=== PATIENT | male | born 1985 | race Caucasian/White ===

== ENCOUNTER 2017-01-04 15:36 | Emergency (ER) | payer OTHER ==
[2017-01-04 15:48] VITALS: O2SAT 99
[2017-01-04] MEDS ORDERED: NORCO 5/325 MG PO ONE (16:11)
[2017-01-04] MEDS ORDERED: TORAdol 30 mg Injection IM ONE (16:11)
[2017-01-04] MEDS ORDERED: NORCO 5/325 MG ONE (16:17)
[2017-01-04] MEDS ORDERED: TORAdol 30 mg Injection ONE (16:17)
--- NOTE | 2017-01-04 16:17 | ERPHSYRPT ---
- History of Present Illness Time Seen by Provider: 01/04/17 16:02 Source: patient Patient Subjective Stated Complaint: MOUTH PAIN Triage Nursing Assessment: ON 12/31--HAD 7 TEETH (3 LT UPPER, 2 RT UPPER, 2 RT LOWER). STATES SWELLING HAS NEVER WENT DOWN SINCE SURGERY ON LT SIDE. PAIN AND LOCALIZED SWELLING TO LT SIDE OF FACE. DENIES DRAINAGE FROM ANY DENTAL SOCKETS. RAN OUT OF VICODEN YESTERDAY Physician History: CC: face pain HX: 31 y/o healthy male patient had [address] Cross in [facility] Friday (4 days). He has Rx for PCN but forgot to take since yesterday. He ran out of vicodin. He has continued left facial pain. No fever or chills. No diff breathing. No redness. He was working at [employer] a lot and it hurts to lifts cans. He has tried ice and warm packs. Allergies/Adverse Reactions: No Known Drug Allergies Allergy (Unverified 01/04/17 15:48) Home Medications: No Home Meds 1 ea UD 01/04/17 [History] Hx Tetanus, Diphtheria Vaccination/Date Given: Yes Hx Influenza Vaccination/Date Given: No Hx Pneumococcal Vaccination/Date Given: No Immunizations Up to Date: Yes - Review of Systems Constitutional: No Fever, No Chills Eyes: No Symptoms Ears, Nose, & Throat: Mouth Pain, Mouth Swelling (left) Respiratory: No Dyspnea Abdominal/Gastrointestinal: No Nausea, No Vomiting Skin: No Rash Neurological: No Headache - Past Medical History Pertinent Past Medical History: Yes Neurological History: No Pertinent History ENT History: Other (dental issues and abcesses) Cardiac History: No Pertinent History Respiratory History: No Pertinent History Endocrine Medical History: No Pertinent History Musculoskeletal History: Arthritis GI Medical History: No Pertinent History History: No Pertinent History Psycho-Social History: No Pertinent History Male Reproductive Disorders: No Pertinent History - Past Surgical History Past Surgical History: Yes Other Surgical History: ORAL - Social History Smoking Status: Current every day smoker How long have you smoked: 15 YEARS Exposure to second hand smoke: Yes Alcohol Use: Socially Drug Use: none Patient Lives Alone: No Significant Family History: no pertinent family hx - Nursing Vital Signs Nursing Vital Signs: Initial Vital Signs Temperature 98.2 F Temperature Source Oral Pulse Rate 94 Respiratory Rate 18 Blood Pressure [Right Arm] 143/83 Pain Intensity 9 - Physical Exam General Appearance: alert Eye Exam: PERRL/EOMI, eyes nml inspection Ears, Nose, Throat Exam: moist mucous membranes, other (left facial swelling. No erythema. Gums look well with sutures in place. Various dental caries.) Neck Exam: normal inspection, non-tender, supple Respiratory Exam: normal breath sounds, lungs clear Cardiovascular Exam: regular rate/rhythm Neurologic Exam: alert, oriented x 3, cooperative Skin Exam: warm, dry, No rash SpO2: 99 Oxygen Delivery: Room Air - Course Nursing assessment & vital signs reviewed: Yes - Progress Progress Note: 01/04/17 16:15 Advised pt needs dental follow up. He has not taken pcn but has Rx so will restart. Vicodin and toradol given here. Advised continue motrin, ice packs, pcn , elevate head. Counseled pt/family regarding: diagnosis, need for follow-up - Departure Time of Disposition: 16:16 Departure Disposition: Home Clinical Impression: Mouth pain, post dental extractions Condition: Stable Critical Care Time: No Referrals: MISTY AMARO [Primary Care Provider] - Instructions: Tooth Decay, Dental Pain Additional Instructions: Rx ibuprofen 600mg every 6 hours. Ice packs off and on. Continue ibuprofen 600mg every [address] Cross dentist Friday. Prescriptions: Ibuprofen 600 mg PO Q6H PRN PRN #24 tablet PRN Reason: Pain
[2017-01-04 16:41] VITALS: BP 121/64; PULSE 60
== END 2017-01-04 16:42 | disposition home or self-care (01) ==
LOC: ED 15:36
DX: Z98.818 Other dental procedure status (principal); K13.79 Other lesions of oral mucosa
CPT/HCPCS: 96372; 99284; J1885

== ENCOUNTER 2017-10-18 08:19 | Emergency (ER) | payer MEDICAID, OTHER ==
--- NOTE | 2017-10-18 08:54 | ERPHSYRPT ---
- History of Present Illness Time Seen by Provider: 10/18/17 08:35 Source: patient, family Exam Limitations: no limitations Patient Subjective Stated Complaint: states right hand was numb upon waking up on 10/17/17. Numbness has not resolved and no known injuries Triage Nursing Assessment: numbness per client in right hand and extending up the anterior portion of lower arm. States sensation intact to bottom aspect of forearm and upper arm Physician History: The patient is a 32-year-old right-handed male with his complaining of weakness in his right forearm and wrist since waking up yesterday morning. He denies pain. He says his right forearm feels somewhat tingly and numb but he can still feel things on his skin. He is able to make a fist but cannot open his thumb or fingers up all the way. He can pull his wrist down but cannot pull it back up. He denies any recent trauma. However, he states about 2-3 months ago while he was lifting a 4 pound weight out away from his body, he felt a sudden pop in his neck. He had severe pain for about 2-3 more weeks in his neck. Since that time he has had no trouble until yesterday morning. His past medical history is negative. He takes no medicines. He smokes tobacco dailly. Timing/Duration: yesterday Severity: moderate Character of Deficits: new weakness, RUE Deficits: weak Baseline/Normal Cognition: alert oriented x 3 Current Cognition: alert oriented x 3 Baseline Gait: walks w/o assistance Associated Symptoms: weakness Allergies/Adverse Reactions: No Known Drug Allergies Allergy (Unverified 01/04/17 15:48) Home Medications: No Home Meds [No Home Meds] 1 [facility] UD 01/04/17 [History] Hx Tetanus, Diphtheria Vaccination/Date Given: No Hx Influenza Vaccination/Date Given: Yes Hx Pneumococcal Vaccination/Date Given: No Immunizations Up to Date: Yes - Review of Systems Constitutional: No Fever, No Chills Eyes: No Symptoms Ears, Nose, & Throat: No Symptoms Respiratory: No Cough, No Dyspnea Cardiac: No Chest Pain, No Edema, No Syncope Abdominal/Gastrointestinal: No Abdominal Pain, No Nausea, No Vomiting, No Diarrhea Genitourinary Symptoms: No Dysuria Musculoskeletal: No Back Pain, No Neck Pain Skin: No Rash Neurological: Focal Weakness (right arm) Psychological: No Symptoms Endocrine: No Symptoms Hematologic/Lymphatic: No Symptoms Immunological/Allergic: No Symptoms All Other Systems: Reviewed and Negative - Past Medical History Pertinent Past Medical History: Yes Neurological History: No Pertinent History ENT History: Other Cardiac History: No Pertinent History Respiratory History: No Pertinent History Endocrine Medical History: No Pertinent History Musculoskeletal History: Arthritis GI Medical History: No Pertinent History History: No Pertinent History Psycho-Social History: No Pertinent History Male Reproductive Disorders: No Pertinent History - Past Surgical History Past Surgical History: Yes Other Surgical History: ORAL - Social History Smoking Status: Current every day smoker How long have you smoked: 15 YEARS Exposure to second hand smoke: Yes Alcohol Use: Socially Drug Use: none Patient Lives Alone: No Significant Family History: no pertinent family hx - Nursing Vital Signs Nursing Vital Signs: Initial Vital Signs Temperature 97.9 F 10/18/17 08:27 Pulse Rate 64 10/18/17 08:27 Respiratory Rate 18 10/18/17 08:27 Blood Pressure 154/79 10/18/17 08:27 O2 Sat by Pulse Oximetry 97 10/18/17 08:27 Pain Scale Pain Intensity 0 - [place] Coma Scale Best Eye Response ([place]): (4) open spontaneously Best Verbal Response (Devan): (5) oriented Best Motor Response (Devan): (6) obeys commands [place] Total: 15 - Physical Exam General Appearance: no apparent distress, alert Eye Exam: bilateral eye: PERRL, EOMI Ears, Nose, Throat Exam: normal ENT inspection, moist mucous membranes Neck Exam: normal inspection, non-tender, supple Respiratory: normal breath sounds, lungs clear, airway intact, No respiratory distress Cardiovascular: regular rate/rhythm, No edema Gastrointestinal: soft, No tenderness, No distention Rectal Exam: not done Back Exam: normal inspection Extremity Exam: paralysis (pt unable to extend right wrist or right fingers and thumb), limited range of motion, No parasthesia Mental Status: alert, oriented x 3 molder hand Exam: tongue midline Coordination/Gait: normal finger to nose, normal gait Motor/Sensory: no sensory deficit, weak motor strength RUE, No sensory deficit Skin Exam: normal color, warm, dry, No rash SpO2 Interpretation: normal SpO2: 97 Oxygen Delivery: Room Air - Course EKG Interpreted by Me: RATE, Sinus Rhythm, NORMAL AXIS, NORMAL INTERVALS, NORMAL QRS, NORMAL ST-T - CT Exams Head CT Interpretation: Negative, Tele-radiologist Report (Per Dr Raymundo) Cervical Spine CT Interpretation: Negative, Tele-radiologist Report (Per Dr Raymundo) Ordered Tests: Active Orders 24 hr Category Date Time Status EKG-ER Only STAT Care 10/18/17 08:58 Active IV Insertion STAT Care 10/18/17 08:55 Active CERVICAL SPINE WO CONTRAST [CT] Stat Exams 10/18/17 08:57 Taken HEAD WITHOUT CONTRAST [CT] Stat Exams 10/18/17 08:57 Taken CBC W DIFF Stat Lab 10/18/17 09:00 Completed CMP Stat Lab 10/18/17 09:00 Completed PROTIME WITH INR Stat Lab 10/18/17 09:00 Completed PTT Stat Lab 10/18/17 09:00 Completed UA W/RFX UR CULTURE Stat Lab 10/18/17 09:54 Completed Urine Triage Profile Stat Lab 10/18/17 09:54 Completed Medication Summary Discontinued Medications Generic Name Dose Route Start Last Admin Trade Name Freq PRN Reason Stop Dose Admin Aspirin 81 mg 10/18/17 08:57 10/18/17 09:08 Baby Aspirin 81 Mg Chew PO 10/18/17 08:58 81 mg STAT ONE Administration Lab/Rad Data: Laboratory Result Diagrams 10/18/17 09:00 10/18/17 09:00 Laboratory Results 10/18/17 10/18/17 10/18/17 Range/Units 09:54 09:54 09:00 WBC (4.0-10.5) K/mm3 RBC (4.1-5.6) M/mm3 Hgb (12.5-18.0) gm/dl Hct (42-50) % MCV (78-100) fl MCH (26-32) pg MCHC (32-36) g/dl RDW (11.5-14.0) % Plt Count (150-450) K/mm3 MPV (6-9.5) fl Gran % (36.0-66.0) % Lymphocytes % (24.0-44.0) % Monocytes % (0.0-12.0) % Eosinophils % (0.00-5.0) % Basophils % (0.0-0.4) % Basophils # (0-0.4) INR 0.93 (0.8-3.0) APTT 34.6 (24.1-36.1) SECONDS Sodium (136-145) mEq/L Potassium (3.5-5.1) mEq/L Chloride (98-107) mEq/L Carbon Dioxide (21-32) mEq/L Anion Gap (5-15) MEQ/L BUN (9-20) mg/dL Creatinine (0.55-1.30) mg/dl Estimated GFR ML/MIN Glucose (70-110) MG/DL Calcium (8.5-10.1) mg/dL Total Bilirubin (0.2-1.0) mg/dL AST (15-37) U/L ALT (12-78) U/L Alkaline Phosphatase (46-116) U/L Serum Total Protein (6.4-8.2) gm/dL Albumin (3.4-5.0) g/dL Ur Collection Type VOID Urine Color YELLOW (YELLOW) Urine Appearance CLEAR (CLEAR) Urine pH 6.0 (5-6) Ur Specific [place] 1.015 (1.005-1.025) Urine Protein NEGATIVE (Negative) Urine Ketones NEGATIVE (NEGATIVE) Urine Blood NEGATIVE (0-5) Zeus/ul Urine Nitrite NEGATIVE (NEGATIVE) Urine Bilirubin NEGATIVE (NEGATIVE) Urine Urobilinogen NORMAL (0-1) mg/dL Ur Leukocyte Esterase NEGATIVE (NEGATIVE) Urine Culture Reflexed NO (NO) Urine Glucose NEGATIVE (NEGATIVE) mg/dL Urine Opiates Level NEG. (NEGATIVE) Ur Methadone NEG. (NEGATIVE) Urine Barbiturates NEG. (NEGATIVE) Ur Phencyclidine (PCP) NEG. (NEGATIVE) Urine Amphetamine NEG. (NEGATIVE) U Benzodiazepine Level NEG. (NEGATIVE) Urine Cocaine NEG. (NEGATIVE) Urine Marijuana (THC) POS. (NEGATIVE) Specimen Received 10/18/2017 0950 10/18/17 10/18/17 Range/Units 09:00 09:00 WBC 8.1 (4.0-10.5) K/mm3 RBC 4.88 (4.1-5.6) M/mm3 Hgb 15.7 (12.5-18.0) gm/dl Hct 46.1 (42-50) % MCV 94.5 (78-100) fl MCH 32.2 H (26-32) pg MCHC 34.1 (32-36) g/dl RDW 12.7 (11.5-14.0) % Plt Count 178 (150-450) K/mm3 MPV 11.5 H (6-9.5) fl Gran % 54.4 (36.0-66.0) % Lymphocytes % 29.2 (24.0-44.0) % Monocytes % 8.5 (0.0-12.0) % Eosinophils % 7.5 H (0.00-5.0) % Basophils % 0.4 (0.0-0.4) % Basophils # 0.03 (0-0.4) INR (0.8-3.0) APTT (24.1-36.1) SECONDS Sodium 138 (136-145) mEq/L Potassium 3.5 (3.5-5.1) mEq/L Chloride 101 (98-107) mEq/L Carbon Dioxide 29.3 (21-32) mEq/L Anion Gap 11.3 (5-15) MEQ/L BUN 11 (9-20) mg/dL Creatinine 0.95 (0.55-1.30) mg/dl Estimated GFR > 60 ML/MIN Glucose 110 (70-110) MG/DL Calcium 9.1 (8.5-10.1) mg/dL Total Bilirubin 0.40 (0.2-1.0) mg/dL AST 15 (15-37) U/L ALT 20 (12-78) U/L Alkaline Phosphatase 67 (46-116) U/L Serum Total Protein 7.3 (6.4-8.2) gm/dL Albumin 4.2 (3.4-5.0) g/dL Ur Collection Type Urine Color (YELLOW) Urine Appearance (CLEAR) Urine pH (5-6) Ur Specific [place] (1.005-1.025) Urine Protein (Negative) Urine Ketones (NEGATIVE) Urine Blood (0-5) Zeus/ul Urine Nitrite (NEGATIVE) Urine Bilirubin (NEGATIVE) Urine Urobilinogen (0-1) mg/dL Ur Leukocyte Esterase (NEGATIVE) Urine Culture Reflexed (NO) Urine Glucose (NEGATIVE) mg/dL Urine Opiates Level (NEGATIVE) Ur Methadone (NEGATIVE) Urine Barbiturates (NEGATIVE) Ur Phencyclidine (PCP) (NEGATIVE) Urine Amphetamine (NEGATIVE) U Benzodiazepine Level (NEGATIVE) Urine Cocaine (NEGATIVE) Urine Marijuana (THC) (NEGATIVE) Specimen Received - Progress Progress: unchanged Progress Note: 12/23/17 10:[address] Sukh Zamarripa, neurosurgeon, at [facility] about the patient's condition. The neurosurgeon recommended a specific physical test, moving the wrist to the radial side. 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 I performed the test on the patient. Extensor function improved when the wrist was moved to the radial side. The patient will be splinted for immobilization. The neurosurgeon recommends follow-up with a neurologist for EMG studies. There may also be referral to a plastic surgeon for nerve release if needed. 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 Your head CT and cervical spine CT were both normal. All of your laboratory testings were normal. I spoke with a neurosurgeon regarding your condition and he assures me that you should have a complete recovery. However, you need to follow up with a neurologist. After the holiday, contact Dr. Eldon Bradley at [facility] at [phone]. You may also contact neurology through [facility] at [phone]. Your wrist was put in a splint that you need to wear until released. Take naproxen 500 mg 2 times a day. Prescriptions: Naproxen 500 mg PO BID #60 tablet.
[2017-10-18] MEDS ORDERED: BABY ASPIRIN 81 MG CHEW PO ONE (08:57)
[2017-10-18 09:16] LABS: BASOPHIL % 0.4 % (0.0-0.4); Eosinophil % 7.5 % (0.00-5.0); Granulocytes % 54.4 % (36.0-66.0); Lymphocytes % 29.2 % (24.0-44.0); Mean Cell Volume 94.5 fl (78-100); Mean Corpuscular Hemoglobin 32.2 pg (26-32); Mean Platelet Volume 11.5 fl (6-9.5); Monocytes % 8.5 % (0.0-12.0); Platelet Count 178 K/mm3 (150-450); Red Blood Count 4.88 M/mm3 (4.1-5.6); Red Cell Distribution Width 12.7 % (11.5-14.0); White Blood Count 8.1 K/mm3 (4.0-10.5)
[2017-10-18 09:36] LABS: ALBUMIN 4.2 g/dL (3.4-5.0); ALKALINE PHOSPHATASE 67 U/L (46-116); ANION GAP 11.3 MEQ/L (5-15); BLOOD UREA NITROGEN 11 mg/dL (9-20); CHLORIDE 101 mEq/L (98-107); Carbon Dioxide 29.3 mEq/L (21-32); Glucose 110 MG/DL (70-110); Potassium 3.5 mEq/L (3.5-5.1); SGOT/AST 15 U/L (15-37); SGPT/ALT 20 U/L (12-78); SODIUM 138 mEq/L (136-145); Total Protein 7.3 gm/dL (6.4-8.2)
[2017-10-18 09:45] LABS: INR 0.93 (0.8-3.0); PROTIME 10.3 SECONDS (8.83-12.87)
[2017-10-18 09:47] LABS: PTT 34.6 SECONDS (24.1-36.1)
[2017-10-18 09:50] VITALS: BP 144/74; PULSE 71
[2017-10-18 09:58] LABS: ADD URINE CULTURE? NO (NO); Bilirubin NEGATIVE (NEGATIVE); Blood NEGATIVE Ery/ul (0-5); COMPLETE URINE MICROSCOPIC? NO; Collection Type VOID; Glucose NEGATIVE (NEGATIVE); Leukocyte Esterase NEGATIVE (NEGATIVE)
[2017-10-18 10:50] VITALS: O2SAT 97
[2017-10-18] MEDS ORDERED: BABY ASPIRIN 81 MG CHEW ONE (12:33)
--- NOTE | 2017-10-18 18:30 | XRAY ---
Indication: Right arm numbness. Multiple contiguous axial images obtained through the head without contrast. Comparison: March 26, 2008. Again normal appearing brain parenchyma, ventricles, and bony calvarium. Mild mucosal thickening of both ethmoid and sphenoid sinuses. Mastoid air cells are clear. Impression: Normal CT head without contrast exam. Incidental paranasal sinus disease. Comment: Preliminary interpretation was made by [facility]. No discrepancy. CTDI 70.55
--- NOTE | 2017-10-18 18:31 | XRAY ---
Indication: Right arm numbness. Multiple contiguous axial images obtained through the cervical spine. Sagittal and coronal reformatted images obtained. Comparison: March 26, 2008. Axial images again negative for acute fracture, suspicious bony lesions, or spinal canal stenosis. Sagittal and coronal reformatted images again demonstrate straightening of the cervical lordosis, positional versus paraspinal muscular spasm. Disc spaces maintained. No acute compression fracture, subluxation, or jump facet. Normal-appearing craniocervical junction. Visualized noncontrasted soft tissues unremarkable. There are now biapical subpleural cystic changes. CT head reported separately. Impression: 1. Again negative for acute fracture/subluxation. 2. Stable cervical lordotic straightening, positional versus paraspinal spasm. Comment: Preliminary interpretation was made by [facility]. No discrepancy. CTDI 94.90
== END 2017-10-18 11:23 | disposition home or self-care (01) ==
LOC: ED 08:19
DX: G56.81 Other specified mononeuropathies of right upper limb (principal)
CPT/HCPCS: 36000; 36415; 70450; 72125; 80053; 80307; 81002; 85025; 85610; 85730; 93005; 99284; L3908; A9270-GY

== ENCOUNTER 2019-04-03 12:56 | Emergency (ER) | payer OTHER ==
[2019-04-03 13:57] LABS: BASOPHIL % 0.4 % (0.0-0.4); Basophil (Absolute #) 0.04 (0-0.4); Eosinophil % 8.4 % (0.00-5.0); Eosinophil (Absolute #) 0.76 (0-0.5); Granulocyte Absolute (ANC) 5.36 (1.4-6.9); Hematocrit 46.3 % (42-50); Hemoglobin 16.3 gm/dl (12.5-18.0); Lymphocyte (Absolute #) 2.01 (1.0-4.6); Lymphocytes % 22.1 % (24.0-44.0); Mean Cell Volume 89.4 fl (78-100); Mean Corpuscular Hemoglobin 31.5 pg (26-32); Mean Corpuscular Hgb Concent. 35.2 g/dl (32-36); Mean Platelet Volume 10.6 fl (6-9.5); Monocyte (Absolute #) 0.92 (0.0-1.3); Monocytes % 10.1 % (0.0-12.0); Platelet Count 265 K/mm3 (150-450); Red Blood Count 5.18 M/mm3 (4.1-5.6); Red Cell Distribution Width 12.7 % (11.5-14.0); White Blood Count 9.1 K/mm3 (4.0-10.5)
--- NOTE | 2019-04-03 14:12 | ERPHSYRPT ---
- History of Present Illness Source: patient Exam Limitations: no limitations Patient Subjective Stated Complaint: pt here for sores to both hands, both knees , and on behind left ear for 3-4 days now, no fever Triage Nursing Assessment: pt alert, walked in, resp easy, skin w/d/p. has open sores to both hands, behind left ear, and both knees, pt unsure if they ar bug bites Physician History: Pt is a 33 y/o male that presented to the ED with complains of multiple wounds all over his body, in exposed areas. He has some on his hands and knees, and behind his ear on L. The pt states, that they started with small bite, and grew and increased in size, erythema and some discharge. Pt denies F/C/S. He states, working in people houses and yards. Pt did not notice if a specific insect was present. Timing/Duration: day(s) Quality: itchy, painful Severity: moderate Location: scalp, hands, feet, extremities Possible Causes: insect bite Associated Symptoms: change in skin texture Allergies/Adverse Reactions: No Known Drug Allergies Allergy (Verified 04/03/19 13:06) Home Medications: Lurasidone HCl [Latuda] 20 mg DAILY 04/03/19 [History] Hx Tetanus, Diphtheria Vaccination/Date Given: Yes (2017) Hx Influenza Vaccination/Date Given: No Hx Pneumococcal Vaccination/Date Given: No Immunizations Up to Date: Yes - Review of Systems Constitutional: No Fever, No Chills Eyes: No Symptoms Ears, Nose, & Throat: No Symptoms Respiratory: No Cough, No Dyspnea Cardiac: No Chest Pain, No Edema, No Syncope Abdominal/Gastrointestinal: No Abdominal Pain, No Nausea, No Vomiting, No Diarrhea Genitourinary Symptoms: No Dysuria Musculoskeletal: No Back Pain, No Neck Pain Skin: Pruritis, Skin Lesions Neurological: No Dizziness, No Focal Weakness, No Sensory Changes - Past Medical History Pertinent Past Medical History: Yes Neurological History: No Pertinent History ENT History: Other Cardiac History: No Pertinent History Respiratory History: No Pertinent History Endocrine Medical History: No Pertinent History Musculoskeletal History: Arthritis GI Medical History: No Pertinent History History: No Pertinent History Psycho-Social History: Bipolar Male Reproductive Disorders: No Pertinent History - Past Surgical History Past Surgical History: No Other Surgical History: ORAL - Social History Smoking Status: Current every day smoker How long have you smoked: 15 YEARS Exposure to second hand smoke: No Alcohol Use: Socially Drug Use: marijuana Patient Lives Alone: No Significant Family History: no pertinent family hx - Nursing Vital Signs Nursing Vital Signs: Initial Vital Signs Temperature 97.7 F 04/03/19 12:59 Pulse Rate 78 04/03/19 12:59 Respiratory Rate 16 04/03/19 12:59 Blood Pressure 139/93 04/03/19 12:59 O2 Sat by Pulse Oximetry 98 04/03/19 12:59 Pain Scale Pain Intensity 8 - Physical Exam General Appearance: no apparent distress, alert Eye Exam: PERRL/EOMI, eyes nml inspection Ears, Nose, Throat Exam: normal ENT inspection, pharynx normal, moist mucous membranes Neck Exam: normal inspection, non-tender, supple, full range of motion Respiratory Exam: normal breath sounds, lungs clear, No respiratory distress Cardiovascular Exam: regular rate/rhythm, normal heart sounds Gastrointestinal/Abdomen Exam: soft, mass, No tenderness Back Exam: normal inspection, normal range of motion, No CVA tenderness, No vertebral tenderness Extremity Exam: normal inspection, normal range of motion Neurologic Exam: alert, oriented x 3, cooperative, normal mood/affect, sensation nml, No motor deficits Skin Exam: other (areas of lesions that are crusted and has mild erythema around them.) SpO2: 98 - Course Nursing assessment & vital signs reviewed: Yes Ordered Tests: Active Orders 24 hr Category Date Time Status BMP Stat Lab 04/03/19 13:52 Received CBC W DIFF Stat Lab 04/03/19 13:52 Completed Urine Triage Profile Stat Lab 04/03/19 13:26 Uncollected Lab/Rad Data: Laboratory Result Diagrams 04/03/19 13:52 Laboratory Results 04/03/19 Range/Units 13:52 WBC 9.1 (4.0-10.5) K/mm3 RBC 5.18 (4.1-5.6) M/mm3 Hgb 16.3 (12.5-18.0) gm/dl Hct 46.3 (42-50) % MCV 89.4 (78-100) fl MCH 31.5 (26-32) pg MCHC 35.2 (32-36) g/dl RDW 12.7 (11.5-14.0) % Plt Count 265 (150-450) K/mm3 MPV 10.6 H (6-9.5) fl Gran % 59.0 (36.0-66.0) % Eos # (Auto) 0.76 H (0-0.5) Absolute Lymphs (auto) 2.01 (1.0-4.6) Absolute Monos (auto) 0.92 (0.0-1.3) Lymphocytes % 22.1 L (24.0-44.0) % Monocytes % 10.1 (0.0-12.0) % Eosinophils % 8.4 H (0.00-5.0) % Basophils % 0.4 (0.0-0.4) % Absolute Granulocytes 5.36 (1.4-6.9) Basophils # 0.04 (0-0.4) - Progress Progress: unchanged Progress Note: 04/03/19 14:11 Lab work was done. No elevation in WBC. Will prescribe the pt Clindamycin to cover MRSA. Pt is instructed not to scratch the wounds, and keep all dry and clean. Calamine lotion to apply when there is itching. Can use Benadryl orally if itching is increased. Will see patient in: office Counseled pt/family regarding: need for follow-up - Departure Departure Disposition: Home Clinical Impression: Insect bites Condition: Stable Critical Care Time: No Referrals: MISTY AMARO [Primary Care Provider] - Additional Instructions: Finish Clindamycin as ordered. F/U with PCP. Prescriptions: Clindamycin HCl [Cleocin HCl] 300 mg PO TID #21 capsule
[2019-04-03 14:29] LABS: ANION GAP 14.3 MEQ/L (5-15); BLOOD UREA NITROGEN 7 mg/dL (9-20); CHLORIDE 103 mmol/L (98-107); Calcium 9.6 mg/dL (8.4-10.2); Carbon Dioxide 25 mmol/L (22-30); Creatinine 1 0.62 mg/dL (0.66-1.25); Glucose 65 mg/dL (74-106); Potassium 3.5 mmol/L (3.5-5.1); SODIUM 139 mmol/L (137-145)
[2019-04-03 14:44] LABS: Barbiturate,Urine NEGATIVE (NEGATIVE); Benzodiazepine,Urine NEGATIVE (NEGATIVE); Cocaine,Urine NEGATIVE (NEGATIVE); Methadone,Urine NEGATIVE (NEGATIVE); Opiate,Urine NEGATIVE (NEGATIVE); PCP,Urine NEGATIVE (NEGATIVE); THC,Urine POSITIVE (NEGATIVE)
[2019-04-03 15:15] LABS: Amphetamine,Urine POSITIVE (NEGATIVE)
[2019-04-03 15:34] VITALS: BP 146/87; PULSE 82; O2SAT 97
== END 2019-04-03 15:34 | disposition home or self-care (01) ==
LOC: ED 12:56
DX: S60.562A Insect bite (nonvenomous) of left hand, initial encounter (principal); S60.561A Insect bite (nonvenomous) of right hand, initial encounter; S80.262A Insect bite (nonvenomous), left knee, initial encounter; S80.261A Insect bite (nonvenomous), right knee, initial encounter; S00.462A Insect bite (nonvenomous) of left ear, initial encounter
CPT/HCPCS: 36415; 80048; 80307; 85025; 99283

== ENCOUNTER 2022-01-09 09:44 | Emergency (ER) | payer OTHER ==
[2022-01-09 09:54] VITALS: O2SAT 96
[2022-01-09] MEDS ORDERED: Sodium Chloride 0.9% 1000 ML 1,000 ML IV SCH (10:00)
--- NOTE | 2022-01-09 10:03 | ERPHSYRPT ---
- History of Present Illness Time Seen by Provider: 01/09/22 09:50 Historian: patient Exam Limitations: no limitations Patient Subjective Stated Complaint: PT HERE FOR SUDDEN ONSET OF ABD PAIN THAT WOKE HIM UP THIS AM, NO PAIN NOW, NO FEVER. Triage Nursing Assessment: PT ALERT, RESP EASY, FACE MASK IN PLACE, SKIN W/D/P. ABD SOFT, BS PRESENT Physician History: Patient is a 36-year-old male presents to emergency department for evaluation of generalized abdominal pain that started this morning. No focal discomfort. No chest pain or shortness of breath. Patient is mildly nauseous. However patient declined pain medication and nausea medication. No trauma. No fever. No testicular pain. Symptoms are mild to moderate in intensity. No specific worsening or improving factors. Patient states is otherwise healthy. He voices no other complaints or concerns at this time. Timing/Duration: today Activities at Onset: none Quality: aching Abdominal Pain Onset Location: generalized abdomen Pain Radiation: no radiation Severity of Pain-Max: moderate Severity of Pain-Current: mild Modifying Factors: Improves With: nothing Associated Symptoms: nausea, No vomiting Previous symptoms: no prior history Allergies/Adverse Reactions: No Known Drug Allergies Allergy (Verified 01/09/22 09:56) Home Medications: Lurasidone HCl [Latuda] 20 mg DAILY 04/03/19 [History] Atorvastatin Calcium 1 ea DAILY 01/09/22 [History] Hx Tetanus, Diphtheria Vaccination/Date Given: Yes (unsure when) Hx Influenza Vaccination/Date Given: No Hx Pneumococcal Vaccination/Date Given: No Immunizations Up to Date: Yes Travel Risk - International Travel Have you traveled outside of the country in past 3 weeks: No - Coronavirus Screening Are you exhibiting any of the following symptoms?: No - Vaccine Status Have you recieved a Covid-19 vaccination: Yes 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[employer] - Vaccination Dates Date of 2cond Vaccination (if applicable): 2020 - Review of Systems Constitutional: No Symptoms, No Fever, No Chills Eyes: No Symptoms Ears, Nose, & Throat: No Symptoms Respiratory: No Symptoms, No Cough, No Dyspnea Cardiac: No Symptoms, No Chest Pain, No Edema, No Syncope Abdominal/Gastrointestinal: No Symptoms, No Abdominal Pain, No Nausea, No Vomiting, No Diarrhea Genitourinary Symptoms: No Symptoms, No Dysuria Musculoskeletal: No Symptoms, No Back Pain, No Neck Pain Skin: No Symptoms, No Rash Neurological: No Symptoms, No Dizziness, No Focal Weakness, No Sensory Changes Psychological: No Symptoms Endocrine: No Symptoms Hematologic/Lymphatic: No Symptoms Immunological/Allergic: No Symptoms All Other Systems: Reviewed and Negative - Past Medical History Pertinent Past Medical History: No Neurological History: No Pertinent History ENT History: Other Cardiac History: No Pertinent History Respiratory History: No Pertinent History Endocrine Medical History: No Pertinent History Musculoskeletal History: Arthritis GI Medical History: No Pertinent History History: No Pertinent History Psycho-Social History: Bipolar Male Reproductive Disorders: No Pertinent History - Past Surgical History Past Surgical History: No Other Surgical History: ORAL - Social History Smoking Status: Current every day smoker How long have you smoked: 20yrs Exposure to second hand smoke: Yes Alcohol Use: Socially Drug Use: marijuana Patient Lives Alone: No Significant Family History: no pertinent family hx - Nursing Vital Signs Nursing Vital Signs: Initial Vital Signs Temperature 97.5 F 01/09/22 09:46 Pulse Rate 53 L 01/09/22 09:46 Respiratory Rate 20 01/09/22 09:46 Blood Pressure 149/90 01/09/22 09:46 O2 Sat by Pulse Oximetry 96 01/09/22 09:46 Pain Scale Pain Intensity 0 - Physical Exam General Appearance: no apparent distress, alert Eye Exam: PERRL/EOMI, eyes nml inspection Ears, Nose, Throat Exam: normal ENT inspection, pharynx normal, moist mucous membranes Neck Exam: normal inspection, non-tender, supple, full range of motion Respiratory Exam: normal breath sounds, lungs clear, airway intact, No respiratory distress Cardiovascular Exam: regular rate/rhythm, normal heart sounds, normal peripheral pulses Gastrointestinal/Abdomen Exam: soft, normal bowel sounds, distention (Mildly distended.), No tenderness, No mass, No rebound, No hepatomegaly, No organomeg yehuda Back Exam: normal inspection, normal range of motion, No CVA tenderness, No vertebral tenderness Extremity Exam: normal inspection, normal range of motion, pelvis stable Neurologic Exam: alert, oriented x 3, cooperative, normal mood/affect, nml cerebellar function, sensation nml, No motor deficits Skin Exam: normal color, warm, dry SpO2 Interpretation: normal SpO2: 96 O2 Delivery: Room Air - Course Nursing assessment & vital signs reviewed: Yes - CT Exams Abdomen/Pelvis CT Interpretation: Tele-radiologist Report (Bibasilar atelectasis. Fecal stasis. Normal appendix. Atrophic left kidney. Remaining CT abdomen pelvis negative.) Ordered Tests: Active Orders 24 hr Category Date Time Status IV Insertion STAT Care 01/09/22 09:58 Active ABDOMEN AND PELVIS W CONTRAST [CT] Stat Exams 01/09/22 09:58 Completed CBC W DIFF Stat Lab 01/09/22 10:00 Completed CMP Stat Lab 01/09/22 10:00 Completed LIPASE Stat Lab 01/09/22 10:00 Completed TROPONIN Q3H Lab 01/09/22 10:00 Completed TROPONIN Q3H Lab 01/09/22 13:00 Ordered TROPONIN Q3H Lab 01/09/22 16:00 Ordered TROPONIN Q3H Lab 01/09/22 19:00 Ordered TROPONIN Q3H Lab 01/09/22 22:00 Ordered UA W/RFX UR CULTURE Stat Lab 01/09/22 09:58 Completed Medication Summary Generic Name Dose Route Start Last Admin Trade Name Freq PRN Reason Stop Dose Admin Sodium Chloride 1,000 mls @ 100 mls/hr 01/09/22 10:00 01/09/22 10:13 Sodium Chloride 0.9% 1000 Ml IV 02/08/22 09:59 100 mls/hr .Q10H GERARDO Administration Lab/Rad Data: Laboratory Result Diagrams 01/09/22 10:00 01/09/22 10:00 Laboratory Results 01/09/22 01/09/22 01/09/22 Range/Units 10:00 10:00 10:00 WBC 7.6 (4.0-10.5) K/mm3 RBC 5.31 (4.1-5.6) M/mm3 Hgb 16.6 (12.5-18.0) gm/dl Hct 48.8 (42-50) % MCV 91.9 (78-100) fl MCH 31.3 (26-32) pg MCHC 34.0 (32-36) g/dl RDW 12.5 (11.5-14.0) % Plt Count 189 (150-450) K/mm3 MPV 11.3 H (7.5-11.0) fl Gran % 51.7 (36.0-66.0) % Eos # (Auto) 0.37 (0-0.5) Absolute Lymphs (auto) 2.59 (1.0-4.6) Absolute Monos (auto) 0.69 (0.0-1.3) Lymphocytes % 34.0 (24.0-44.0) % Monocytes % 9.1 (0.0-12.0) % Eosinophils % 4.9 (0.00-5.0) % Basophils % 0.3 (0.0-0.4) % Absolute Granulocytes 3.95 (1.4-6.9) Basophils # 0.02 (0-0.4) Sodium 142 (137-145) mmol/L Potassium 4.5 (3.5-5.1) mmol/L Chloride 106 (98-107) mmol/L Carbon Dioxide 29 (22-30) mmol/L Anion Gap 11.7 (5-15) MEQ/L BUN 9 (9-20) mg/dL Creatinine 0.69 (0.66-1.25) mg/dL Estimated GFR > 60.0 ML/MIN Glucose 93 (74-106) mg/dL Calcium 10.0 (8.4-10.2) mg/dL Total Bilirubin 0.70 (0.2-1.3) mg/dL AST 30 (17-59) U/L ALT 23 (0-50) U/L Alkaline Phosphatase 77 (38-126) U/L Troponin I < 0.012 (0.000-0.034) ng/mL Serum Total Protein 7.1 (6.3-8.2) g/dL Albumin 4.5 (3.5-5.0) g/dL Lipase 212 (23-300) U/L Urine Color (YELLOW) Urine Appearance (CLEAR) Urine pH (5-6) Ur Specific [place] (1.005-1.025) Urine Protein (Negative) Urine Ketones (NEGATIVE) Urine Blood (0-5) Zeus/ul Urine Nitrite (NEGATIVE) Urine Bilirubin (NEGATIVE) Urine Urobilinogen (0-1) mg/dL Ur Leukocyte Esterase (NEGATIVE) Urine WBC (Auto) (0-5) /HPF Urine RBC (Auto) (0-2) /HPF U Epithel Cells (Auto) (FEW) /HPF Urine Bacteria (Auto) (NEGATIVE) /HPF Urine Culture Reflexed (NO) Urine Glucose (NEGATIVE) mg/dL 01/09/22 Range/Units 09:58 WBC (4.0-10.5) K/mm3 RBC (4.1-5.6) M/mm3 Hgb (12.5-18.0) gm/dl Hct (42-50) % MCV (78-100) fl MCH (26-32) pg MCHC (32-36) g/dl RDW (11.5-14.0) % Plt Count (150-450) K/mm3 MPV (7.5-11.0) fl Gran % (36.0-66.0) % Eos # (Auto) (0-0.5) Absolute Lymphs (auto) (1.0-4.6) Absolute Monos (auto) (0.0-1.3) Lymphocytes % (24.0-44.0) % Monocytes % (0.0-12.0) % Eosinophils % (0.00-5.0) % Basophils % (0.0-0.4) % Absolute Granulocytes (1.4-6.9) Basophils # (0-0.4) Sodium (137-145) mmol/L Potassium (3.5-5.1) mmol/L Chloride (98-107) mmol/L Carbon Dioxide (22-30) mmol/L Anion Gap (5-15) MEQ/L BUN (9-20) mg/dL Creatinine (0.66-1.25) mg/dL Estimated GFR ML/MIN Glucose (74-106) mg/dL Calcium (8.4-10.2) mg/dL Total Bilirubin (0.2-1.3) mg/dL AST (17-59) U/L ALT (0-50) U/L Alkaline Phosphatase (38-126) U/L Troponin I (0.000-0.034) ng/mL Serum Total Protein (6.3-8.2) g/dL Albumin (3.5-5.0) g/dL Lipase (23-300) U/L Urine Color YELLOW (YELLOW) Urine Appearance CLEAR (CLEAR) Urine pH 7.0 (5-6) Ur Specific [place] 1.010 (1.005-1.025) Urine Protein NEGATIVE (Negative) Urine Ketones NEGATIVE (NEGATIVE) Urine Blood NEGATIVE (0-5) Zeus/ul Urine Nitrite NEGATIVE (NEGATIVE) Urine Bilirubin NEGATIVE (NEGATIVE) Urine Urobilinogen NEGATIVE (0-1) mg/dL Ur Leukocyte Esterase NEGATIVE (NEGATIVE) Urine WBC (Auto) NONE (0-5) /HPF Urine RBC (Auto) NONE (0-2) /HPF U Epithel Cells (Auto) NONE (FEW) /HPF Urine Bacteria (Auto) NONE (NEGATIVE) /HPF Urine Culture Reflexed NO (NO) Urine Glucose NEGATIVE (NEGATIVE) mg/dL - Progress Progress: improved Progress Note: Patient reassessed. No active pain. Laboratory work-up essentially nonremarkable. CT abdomen pelvis reveals bibasilar atelectasis. There is fecal stasis. Appendix is normal. Left atrophic kidney. Patient continues to decline pain and nausea medication. UA nonremarkable. No signs of infection. No indication for further work-up at this time. Will discharge home. Patient agrees to follow-up with his primary care doctor within 48 hours for reevaluation. Patient advised aere-gvi-[id number] laxative as needed. Portions of this note were created with voice recognition technology. There may be grammatical, spelling, punctuation or sound alike errors 01/09/22 10:54 Counseled pt/family regarding: lab results, diagnosis, need for follow-up, rad results - Departure Departure Disposition: Home Clinical Impression: Abdominal pain, Constipation Condition: Stable Critical Care Time: No Referrals: MISTY AMARO NP [Primary Care Provider] - Follow up/PCP as directed Additional Instructions: Discharge/Care Plan JAMI PURI was seen on 01/09/22 in the Emergency Room. The patient was counseled regarding Diagnosis,Lab results, Imaging studies, need for follow up and when to return to the Emergency Room. Prescriptions given: Discharge Note I have spoken with the patient and/or caregivers. I have explained the patient's condition, diagnosis and treatment plan based on the information available to me at this time. I have answered the patient's and/or caregiver's questions and addressed any concerns. The patient and/or caregivers have as good understanding of the patient's diagnosis, condition and treatment plan as can be expected at this point. The vital signs have been stable. The patient's condition is stable and appropriate for discharge from the emergency department. The patient will pursue further outpatient evaluation with the primary care physician or other designated or consulting physician as outlined in the discharge instructions. The patient and/or caregivers are agreeable to this plan of care and follow-up instructions have been explained in detail. The patient and/or caregivers have received these instruction. The patient/and or caregivers are aware that any significant change in condition or worsening of symptoms should prompt an immediate return to this or the closest emergency department or call 911.
[2022-01-09] MEDS ORDERED: Sodium Chloride 0.9% 1000 ML 1,000 ML ONE (10:11)
[2022-01-09 10:14] LABS: Absolute Neutrophil Ct (ANC) 3.95 (1.4-6.9); Basophil (Absolute #) 0.02 (0-0.4); Eosinophil % 4.9 % (0.00-5.0); Eosinophil (Absolute #) 0.37 (0-0.5); Hematocrit 48.8 % (42-50); Hemoglobin 16.6 gm/dl (12.5-18.0); Lymphocyte (Absolute #) 2.59 (1.0-4.6); Mean Cell Volume 91.9 fl (78-100); Mean Corpuscular Hemoglobin 31.3 pg (26-32); Mean Platelet Volume 11.3 fl (7.5-11.0); Monocyte (Absolute #) 0.69 (0.0-1.3); Monocytes % 9.1 % (0.0-12.0); Neutrophil % 51.7 % (36.0-66.0); Platelet Count 189 K/mm3 (150-450); Red Blood Count 5.31 M/mm3 (4.1-5.6); Red Cell Distribution Width 12.5 % (11.5-14.0); White Blood Count 7.6 K/mm3 (4.0-10.5)
[2022-01-09 10:29] LABS: ALBUMIN 4.5 g/dL (3.5-5.0); ALKALINE PHOSPHATASE 77 U/L (38-126); ANION GAP 11.7 MEQ/L (5-15); BLOOD UREA NITROGEN 9 mg/dL (9-20); CHLORIDE 106 mmol/L (98-107); Carbon Dioxide 29 mmol/L (22-30); Creatinine 1 0.69 mg/dL (0.66-1.25); EST GLOMERULAR FILTRATION RATE > 60.0 ML/MIN; Glucose 93 mg/dL (74-106); LIPASE 212 U/L (23-300); Potassium 4.5 mmol/L (3.5-5.1); SGOT/AST 30 U/L (17-59); SGPT/ALT 23 U/L (0-50); SODIUM 142 mmol/L (137-145); Total Protein 7.1 g/dL (6.3-8.2)
--- NOTE | 2022-01-09 10:42 | XRAY ---
Indication: Abdomen pain. Multiple contiguous axial images obtained through abdomen and pelvis using 80 cc Isovue 370 contrast. Comparison: None Lung bases demonstrates bibasilar dependent atelectasis. No infiltrate or effusion. Heart not enlarged. Noncontrasted stomach and bowel loops appear nonobstructed with normal appendix. Mild diffuse fecal stasis. No free fluid/air. Mildly atrophic/scarred left kidney. Remaining liver, gallbladder, pancreas, spleen, adrenal glands, kidneys, ureters, bladder, and aorta are unremarkable. No pathologic retroperitoneal lymphadenopathy. Impression: 1. Mild diffuse fecal stasis and mildly atrophic/scarred left kidney. 2. Remaining CT abdomen/pelvis with contrast exam is negative.
[2022-01-09 10:45] LABS: Appearance CLEAR (CLEAR); Bilirubin NEGATIVE (NEGATIVE); Blood NEGATIVE Ery/ul (0-5); Glucose NEGATIVE (NEGATIVE); Ketones NEGATIVE (NEGATIVE); Leukocyte Esterase NEGATIVE (NEGATIVE); Nitrite NEGATIVE (NEGATIVE); Protein,Urine Dip NEGATIVE (Negative); Urobilinogen NEGATIVE mg/dL (0-1)
[2022-01-09 11:20] VITALS: BP 125/85; PULSE 58
== END 2022-01-09 11:20 | disposition home or self-care (01) ==
LOC: ED 09:44
DX: K59.00 Constipation, unspecified (principal); R10.84 Generalized abdominal pain; R11.0 Nausea; Z72.0 Tobacco use; Z79.899 Other long term (current) drug therapy
CPT/HCPCS: 36000; 36415; 74177; 80053; 81001; 83690; 84484; 85025; 99284

== ENCOUNTER 2022-05-03 23:22 | Emergency (ER) | payer OTHER ==
--- NOTE | 2022-05-03 23:44 | ERPHSYRPT ---
- History of Present Illness Source: patient Exam Limitations: no limitations Patient Subjective Stated Complaint: face swelling from bad tooth, "I think I have a tooth abscess". Triage Nursing Assessment: pt c/o facial swelling which occured tonight around 5pm. Pt has bad teeth and thinks he may have an abscess, pt denies any pain at this time. Physician History: 36 yo wm w R facial edema starting tonight. Pt has poor dentition but states t hat he has only mild intermittent R upper dental pain. He denies fever/sinus drainage/ST/cough/coryza/n/v/diarrhea. Timing/Duration: gradual onset Severity: mild ENT Location: facial Prearrival Treatment: no prearrival treatment Modifying Factors: Improves With: nothing Associated Symptoms: facial pain/swelling, tooth pain, No ear pain (R), No ear pain (L), No cough, No fever, No chills, No change in hearing, No dizziness, No drooling, No ear drainage, No headache, No hearing loss, No jaw pain, No malaise, No motion sickness, No nasal congestion/drainage, No epistaxis, No nasal foreign body, No neck pain, No poor fluid intake, No poor solids intake, No ringing of ears, No swollen glands, No sinus infection, No sore throat, No difficulty swallowing, No voice change Allergies/Adverse Reactions: No Known Drug Allergies Allergy (Verified 05/03/22 23:34) Home Medications: Lurasidone HCl [Latuda] 20 mg PO DAILY 04/03/19 [History] Atorvastatin Calcium 1 ea PO DAILY 01/09/22 [History] Tamsulosin HCl 0.4 mg [Flomax 0.4 MG] 1 tab PO HS 05/03/22 [History] Hx Tetanus, Diphtheria Vaccination/Date Given: Yes Hx Influenza Vaccination/Date Given: No Hx Pneumococcal Vaccination/Date Given: No Immunizations Up to Date: Yes Travel Risk - International Travel Have you traveled outside of the country in past 3 weeks: No - Coronavirus Screening Are you exhibiting any of the following symptoms?: No Close contact with a COVID-19 positive Pt in past 14-21 Days: No - Vaccine Status Have you recieved a Covid-19 vaccination: 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 - Review of Systems Constitutional: No Symptoms Eyes: No Symptoms Ears, Nose, & Throat: No Symptoms, Mouth Pain Respiratory: No Symptoms Cardiac: No Symptoms Abdominal/Gastrointestinal: No Symptoms Genitourinary Symptoms: No Symptoms Musculoskeletal: No Symptoms Skin: No Symptoms Neurological: No Symptoms Psychological: No Symptoms Endocrine: No Symptoms Hematologic/Lymphatic: No Symptoms Immunological/Allergic: No Symptoms - Past Medical History Pertinent Past Medical History: Yes Neurological History: No Pertinent History ENT History: Other Cardiac History: High Cholesterol Respiratory History: No Pertinent History Endocrine Medical History: No Pertinent History Musculoskeletal History: Arthritis GI Medical History: No Pertinent History History: Other Psycho-Social History: Bipolar Male Reproductive Disorders: No Pertinent History Other Medical History: urinary flow slow - Past Surgical History Past Surgical History: No Other Surgical History: ORAL - Social History Smoking Status: Current every day smoker How long have you smoked: 20 yrs Exposure to second hand smoke: No Alcohol Use: Socially Drug Use: marijuana Patient Lives Alone: No Significant Family History: no pertinent family hx - Nursing Vital Signs Nursing Vital Signs: Initial Vital Signs Temperature 97.6 F 05/03/22 23:26 Pulse Rate 65 05/03/22 23:26 Respiratory Rate 16 05/03/22 23:26 Blood Pressure 138/81 05/03/22 23:26 O2 Sat by Pulse Oximetry 97 05/03/22 23:26 Pain Scale Pain Intensity 0 WNL - Physical Exam General Appearance: no apparent distress (Mild R facial edema at best/Mildly TTP) Eye Exam: bilateral eye: PERRL, EOMI, other (B eyes erythematous) Ear Exam: bilateral ear: auricle normal, canal normal, TM normal Nasal Exam: normal inspection, No active bleeding Throat Exam: dental tenderness (Very poor dentition w advanced caries and multiple missing teeth/R superior 1st molar and incisor w caries and mildly TTP), No pharynx swelling, No pharynx tenderness, No tongue swollen, No tonsillar exudate, No tonsillar swelling, No trismus, No uvula swelling Neck Exam: normal inspection, non-tender, supple, full range of motion, trachea midline, No Brudzinski's sign, No Kernig's sign, No meningismus Cardiovascular/Respiratory Exam: normal breath sounds, regular rate/rhythm, heart sounds normal Abdominal Exam: non-tender, soft Neurologic Exam: alert, oriented x 3, cooperative, metal stamper II-XII nml as tested, nml station & gait, sensation nml, other (Pt appears to be under the influence of marijuana which he states that he smokes), No motor deficits, No sensory deficit Skin Exam: normal color, warm, dry SpO2 Interpretation: normal SpO2: 97 O2 Delivery: Room Air - Course Nursing assessment & vital signs reviewed: Yes Ordered Tests: Medication Summary Discontinued Medications Generic Name Dose Route Start Last Admin Trade Name Danilo PRN Reason Stop Dose Admin Penicillin V Potassium 500 mg 05/03/22 23:48 05/03/22 23:53 Penicillin V Potassium 250 Mg Tablet PO 05/03/22 23:49 Not Given STAT ONE Penicillin V Potassium Confirm 05/03/22 23:49 Penicillin V Potassium 250 Mg Tablet Administered 05/03/22 23:50 Dose 500 mg .ROUTE .STK-MED ONE Penicillin V Potassium 500 mg 05/03/22 23:49 05/03/22 23:51 Penicillin V Potassium 250 Mg Tablet PO 05/03/22 23:50 500 mg STAT ONE Administration - Progress Progress Note: 05/03/22 23:46 Pt has minimal R facial edema at best but is most likely due to his poor dentition Counseled pt/family regarding: diagnosis, need for follow-up - Departure Departure Disposition: Home Clinical Impression: Edema of face Condition: Stable Critical Care Time: No Referrals: MISTY AMARO NP [Primary Care Provider] - Follow up/PCP as directed Instructions: Tooth Abscess (DC), Tooth Decay, Adult (DC) Additional Instructions: Start Penicillin three times a day for 1 week Follow up with your dentist Return to ER for increasing redness/swelling/pain/temperature greater than 100.5 Prescriptions: Penicillin V Potassium 500 mg PO TID 10 Days #21 tablet
[2022-05-03] MEDS ORDERED: PENICILLIN V POTASSIUM PO ONE ×2 (23:48→23:49)
[2022-05-03] MEDS ORDERED: PENICILLIN V POTASSIUM ONE (23:49)
[2022-05-04 00:05] VITALS: BP 109/70; PULSE 63
[2022-05-04 00:58] VITALS: O2SAT 97
== END 2022-05-04 00:06 | disposition home or self-care (01) ==
LOC: ED 23:22
DX: R60.0 Localized edema (principal); K02.9 Dental caries, unspecified; E78.5 Hyperlipidemia, unspecified; Z72.0 Tobacco use; Z79.899 Other long term (current) drug therapy
CPT/HCPCS: 99281; A9270-GY

== ENCOUNTER 2022-10-11 05:59 | Day surgery (SDC) | payer OTHER ==
[2022-10-11] MEDS ORDERED: Lactated Ringers 1,000 ML IV SCH (06:30)
[2022-10-11] MEDS ORDERED: Versed 2 MG/2 ML Injection ONE (07:29)
[2022-10-11] MEDS ORDERED: DIPRIVAN 200 MG/20 ML IV ONE (07:29)
[2022-10-11] MEDS ORDERED: Xylocaine-Mpf 2% 5 Ml Vial ONE (07:29)
[2022-10-11 08:37] VITALS: BP 125/71; PULSE 54; O2SAT 98
--- NOTE | 2022-10-11 09:07 | OP ---
SURGERY DATE/TIME: 10/11/2022 0732 PREOPERATIVE DIAGNOSIS: Rectal spasms. POSTOPERATIVE DIAGNOSIS: Normal colon. PROCEDURE: Colonoscopy. SURGEON: Dr. Ernie Villaseñor. ANESTHESIA: MAC. Medications given by anesthesia department. HISTORY: The patient is a 37-year-old white male patient presenting now for colonoscopic evaluation. The patient reports that he had been having problems with intermittent rectal pain that he felt like someone was shoving a corn cob up his bottom but this is only occurring about once or twice a month. He denies any bleeding. There is no family history of colon polyps or colon cancer. The patient reports he had examination performed which had been unrevealing and is now time to consider doing colonoscopic evaluation. The patient was appraised of the risks of the procedure including the risk of perforation, phlebitis, untoward reaction to medication, bleeding and missed lesions. The patient verbalized his understanding and desired to have the procedure performed. DESCRIPTION OF PROCEDURE: The patient was given the medications by the anesthesia department. He had continuous pulse oximetry, ECG monitoring, intermittent blood pressure monitoring and tidal CO2 monitoring during the examination. The patient was placed in the left lateral decubitus position. A digital rectal examination was performed and revealed normal anal sphincter tone, no masses and a normal prostate. The flexible Olympus pediatric colonoscope was used to intubate the rectum. A view of the colon was developed sequentially to the cecum. Upon insertion and withdrawal, including a retroflex view in the rectum, no mucosal lesions were encountered. The scope was removed from the patient who tolerated the procedure well and was sent back to outpatient recovery in good condition. The prep was noted to be fair to good.
== END 2022-10-11 08:40 | disposition home or self-care (01) ==
LOC: SDC 05:59
PROVIDERS: ATTEND Family Medicine
DX: K59.4 Anal spasm (principal)
CPT/HCPCS: J2250; J2704

== ENCOUNTER 2023-07-12 18:35 | Emergency (ER) | payer OTHER ==
[2023-07-12] MEDS ORDERED: Sodium Chloride 0.9% 1000 ML 1,000 ML IV STA (18:50)
[2023-07-12] MEDS ORDERED: Zofran 4 MG/2 ML VIAL IV STA (18:50)
[2023-07-12] MEDS ORDERED: Rocephin 1000 MG INJ IV ONE (18:50)
[2023-07-12 18:54] VITALS: TEMP 99.2; O2SAT 97
--- NOTE | 2023-07-12 18:57 | ERPHSYRPT ---
- History of Present Illness Time Seen by Provider: 07/12/23 18:55 Patient Subjective Stated Complaint: pt reports dental surgery/extractions on 07/08/23, states he is on an oral abx for dental abscess, states today at noon he began vomiting and has been vomiting every 15 mins since then. pt reports fever and chills. Triage Nursing Assessment: pt is aox3, pupils perrl, resps easy and non labored, cap refill < 2 seconds, radial pulses strong and equal, pt skin pink warm dry. pt teeth in various stages of decay, sutures intact to the back/upper gums where two teeth are surgically absent. Physician History: 37 years old male had dental surgery/extractions on 07/08/23, states he is on an oral abx for dental abscess, states today at noon he began vomiting and has been vomiting every 15 mins since then. pt reports fever and chills. sutures intact to the back/upper gums where two teeth are surgically absent. Timing/Duration: today Associated Symptoms: vomiting, abdominal pain, chills, fever Allergies/Adverse Reactions: No Known Drug Allergies Allergy (Verified 07/12/23 18:54) Home Medications: Atorvastatin Calcium 1 ea PO DAILY 01/09/22 [History] Omeprazole 10 mg PO DAILY 09/27/22 [History] Buprenorphine HCl/Naloxone HCl [Suboxone 8 mg-2 mg Sl Film] 1 each SL DAILY 07/12/23 [History] OLANZapine [Zyprexa] 10 mg PO HS 07/12/23 [History] Hx Tetanus, Diphtheria Vaccination/Date Given: Yes Hx Influenza Vaccination/Date Given: No Hx Pneumococcal Vaccination/Date Given: No Immunizations Up to Date: Yes Travel Risk - International Travel Have you traveled outside of the country in past 3 weeks: No - Coronavirus Screening Are you exhibiting any of the following symptoms?: No Close contact with a COVID-19 positive Pt in past 14-21 Days: No - Vaccine Status Have you recieved a Covid-19 vaccination: 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 - Review of Systems Constitutional: Fever, Chills Eyes: No Symptoms Ears, Nose, & Throat: Loose Teeth Respiratory: No Cough, No Dyspnea Cardiac: No Chest Pain, No Edema, No Syncope Abdominal/Gastrointestinal: No Abdominal Pain, No Nausea, No Vomiting, No Diarrhea Genitourinary Symptoms: No Dysuria Musculoskeletal: No Back Pain, No Neck Pain Skin: No Rash Neurological: No Dizziness, No Focal Weakness, No Sensory Changes Psychological: No Symptoms Endocrine: No Symptoms All Other Systems: Reviewed and Negative - Past Medical History Pertinent Past Medical History: Yes Neurological History: No Pertinent History ENT History: Other Cardiac History: High Cholesterol Respiratory History: No Pertinent History Endocrine Medical History: No Pertinent History Musculoskeletal History: Arthritis GI Medical History: No Pertinent History History: Other Psycho-Social History: Bipolar Male Reproductive Disorders: No Pertinent History Other Medical History: urinary flow slow. vertigo - Past Surgical History Past Surgical History: No Neuro Surgical History: No Pertinent History Cardiac: No Pertinent History Respiratory: No Pertinent History Gastrointestinal: No Pertinent History Genitourinary: No Pertinent History Musculoskeletal: No Pertinent History Male Surgical History: No Pertinent History Other Surgical History: ORAL - Social History Smoking Status: Current every day smoker How long have you smoked: 20 yrs Exposure to second hand smoke: No Alcohol Use: Socially Drug Use: none Patient Lives Alone: No Significant Family History: no pertinent family hx - Nursing Vital Signs Nursing Vital Signs: Initial Vital Signs Temperature 99.2 F 07/12/23 18:39 Pulse Rate 83 07/12/23 18:39 Respiratory Rate 18 07/12/23 18:39 Blood Pressure 164/85 07/12/23 18:39 O2 Sat by Pulse Oximetry 97 07/12/23 18:39 Pain Scale Pain Intensity 0 - Physical Exam General Appearance: no apparent distress, alert Eye Exam: PERRL/EOMI, eyes nml inspection Ears, Nose, Throat Exam: normal ENT inspection, TMs normal, pharynx normal, moist mucous membranes, other (multiple tooth decay) Neck Exam: normal inspection, non-tender, supple, full range of motion Respiratory Exam: normal breath sounds, lungs clear, No respiratory distress Cardiovascular Exam: regular rate/rhythm, normal heart sounds, normal peripheral pulses Gastrointestinal/Abdomen Exam: soft, normal bowel sounds, No tenderness, No mass Back Exam: normal inspection, normal range of motion, No CVA tenderness, No vertebral tenderness Extremity Exam: normal inspection, normal range of motion, pelvis stable Neurologic Exam: alert, oriented x 3, cooperative, normal mood/affect, nml cerebellar function, nml station & gait, sensation nml, No motor deficits Skin Exam: normal color, warm, dry, No rash Lymphatic Exam: No adenopathy SpO2: 97 - Course Nursing assessment & vital signs reviewed: Yes Ordered Tests: Active Orders 24 hr Category Date Time Status CBC W DIFF Stat Lab 07/12/23 19:04 Completed CMP Stat Lab 07/12/23 19:04 Completed Medication Summary Generic Name Dose Route Start Last Admin Trade Name Fretj PRN Reason Stop Dose Admin Sodium Chloride 1,000 mls @ 999 mls/hr 07/12/23 18:50 07/12/23 19:17 Sodium Chloride 0.9% 1000 Ml IV 07/12/23 19:50 999 mls/hr .Q1H1M STA Administration Ceftriaxone Sodium/Dextrose 1 g in 50 mls @ 100 mls/hr 07/12/23 19:18 07/12/23 19:20 Rocephin 1 Gm-D5w 50 Ml Bag IV 07/12/23 19:47 100 mls/hr STAT STA 100 mls/hr Administration Discontinued Medications Generic Name Dose Route Start Last Admin Trade Name Freq PRN Reason Stop Dose Admin Ceftriaxone Sodium 1,000 mg 07/12/23 18:50 07/12/23 19:17 Ceftriaxone Sodium 1000 Mg Inj Vial IV 07/12/23 18:51 Not Given STAT ONE Sodium Chloride Confirm 07/12/23 19:16 Sodium Chloride 0.9% 1000 Ml Administered 07/12/23 19:17 Dose 1,000 mls @ ud .ROUTE .STK-MED ONE Ceftriaxone Sodium/Dextrose Confirm 07/12/23 19:16 Rocephin 1 Gm-D5w 50 Ml Bag Administered 07/12/23 19:17 Dose 1 g in 50 mls @ ud IV .STK-MED ONE Ondansetron HCl 4 mg 07/12/23 18:50 07/12/23 19:17 Ondansetron Hcl 4 Mg/2 Ml Vial IV 07/12/23 18:51 4 mg STAT STA Administration Ondansetron HCl Confirm 07/12/23 19:16 Ondansetron Hcl 4 Mg/2 Ml Vial Administered 07/12/23 19:17 Dose 4 mg .ROUTE .STK-MED ONE Lab/Rad Data: Laboratory Result Diagrams 07/12/23 19:04 07/12/23 19:04 Laboratory Results 07/12/23 07/12/23 Range/Units 19:04 19:04 WBC 12.4 H (4.0-10.5) x10^3/uL RBC 5.46 (4.1-5.6) x10^6/uL Hgb 17.1 (12.5-18.0) g/dL Hct 49.1 (42-50) % MCV 89.9 (78-100) fL MCH 31.3 (26-32) pg MCHC 34.8 (32-36) g/dL RDW 11.7 (11.5-14.0) % Plt Count 307 (150-450) x10^3/uL MPV 10.4 (7.5-11.0) fL Gran % 89.1 H (36.0-66.0) % Immature Gran % (Auto) 0.4 (0.00-0.4) % Nucleat RBC Rel Count 0.0 (0.00-0.1) % Eos # (Auto) 0 (0-0.5) x10^3/uL Immature Gran # (Auto) 0.05 H (0.00-0.03) x10^3u/L Absolute Lymphs (auto) 1.01 (1.0-4.6) x10^3/uL Absolute Monos (auto) 0.27 (0.0-1.3) x10^3/uL Absolute Nucleated RBC 0.00 (0.00-0.01) x10^3u/L Lymphocytes % 8.1 L (24.0-44.0) % Monocytes % 2.2 (0.0-12.0) % Eosinophils % 0.0 (0.00-5.0) % Basophils % 0.2 (0.0-0.4) % Absolute Granulocytes 11.06 H (1.4-6.9) x10^3/uL Basophils # 0.02 (0-0.4) x10^3/uL Sodium 139 (137-145) mmol/L Potassium 3.8 (3.5-5.1) mmol/L Chloride 105 (98-107) mmol/L Carbon Dioxide 22 (22-30) mmol/L Anion Gap 15.3 H (5-15) MEQ/L BUN 7 L (9-20) mg/dL Creatinine 0.60 L (0.66-1.25) mg/dL Estimated GFR > 60.0 ML/MIN Glucose 122 H (74-106) mg/dL Calcium 9.3 (8.4-10.2) mg/dL Total Bilirubin 0.50 (0.2-1.3) mg/dL AST 29 (17-59) U/L ALT 26 (0-50) U/L Alkaline Phosphatase 87 (38-126) U/L Serum Total Protein 7.6 (6.3-8.2) g/dL Albumin 4.6 (3.5-5.0) g/dL - Progress Progress: improved Counseled pt/family regarding: lab results, diagnosis, need for follow-up Medical Desision Making - Diagnostic Testing Diagnostic test were ordered, analyzed, and reviewed by me: Yes - Risk of complications Low Risk: Low risk of morbidity from additional dx testing or treatment - Departure Departure Disposition: Home Clinical Impression: Dental abscess, Dehydration, Fever and chills Condition: Stable Critical Care Time: No Referrals: MISTY AMARO, FACILITIES ASSISTANT [Primary Care Provider] - Follow Up with PCP/3 days Instructions: Dehydration, Adult (DC), Nausea and Vomiting, Adult (DC), Fever, Adult (DC) Additional Instructions: Discharge/Care Plan JAMI PURI was seen on 07/12/23 in the Emergency Room. The patient was counseled regarding Diagnosis,Lab results, Imaging studies, need for follow up and when to return to the Emergency Room. Prescriptions given: Discharge Note I have spoken with the patient and/or caregivers. I have explained the patient's condition, diagnosis and treatment plan based on the information available to me at this time. I have answered the patient's and/or caregiver's questions and addressed any concerns. The patient and/or caregivers have as good understanding of the patient's diagnosis, condition and treatment plan as can be expected at this point. The vital signs have been stable. The patient's condition is stable and appropriate for discharge from the emergency department. The patient will pursue further outpatient evaluation with the primary care physician or other designated or consulting physician as outlined in the discharge instructions. The patient and/or caregivers are agreeable to this plan of care and follow-up instructions have been explained in detail. The patient and/or caregivers have received these instruction. The patient/and or caregivers are aware that any significant change in condition or worsening of symptoms should prompt an immediate return to this or the closest emergency department or call 911. JAMI PURI was seen on 07/12/23 n the Emergency Room. At that time you were treated for an emergent condition, during your visit Laboratory, Radiology and/or other procedures may have been ordered. It is very important that you follow-up with your Primary Care Physician MISTY AMARO within the next 24-48 hours to review your Emergency Room visit and the final results of testing that was ordered. Some test results such as Urine Cultures, Blood Cultures, and other cultures if ordered will not be finalized for 24-48 hours. If you do not have a Primary Care Provider please call the medical records department at [phone] to obtain a copy of your results or you may sign into our patient portal to obtain these results by visiting us @ [email or web address] and completing the following steps: 1. Click on the Patient Portal link 2. Click the Patient Self Enrollment Link to complete the enrollment form and entering your 3. Once the enrollment form is completed you will receive an email with a temporary ID and password at the email address you provided. 4. Next choose a user name and password. Your user name must be at least 4 characters long and your password must be at least 4 characters long. 5. Choose a security question from the list and provide your answer to the question. If you already have signed into the Health Portal you may access your Health Care Information 19/05 by the following steps: 1. Login to our website @ [email or web address] 2. Enter your original user name and password. FAQS The [facility] Health Portal is an online tool that contains your Lab Results, Radiology Reports, Visit History, Discharge Instructions and Health Summary Lab and Radiology Results will not be available for 72 hours on the portal. The Portal is a secure site, passwords are encryted and URLs are re-written so they cannot be copied and pasted. You and authorized family members are the only ones who can access your Portal. Also there is a timeout feature that protects your information if you leave the Portal page open. If you have technical difficulty please use the Contact Us link on the page this will allow you to submit any questions you have regarding the Portal or you may contact the Medical Record Department at [phone] ext [phone]. Prescriptions: Cephalexin Mh 500 mg [Keflex 500 mg] 500 mg PO Q6H #40 cap
[2023-07-12 19:07] LABS: Absolute Neutrophil Ct (ANC) 11.06 x10^3/uL (1.4-6.9); BASOPHIL % 0.2 % (0.0-0.4); Basophil (Absolute #) 0.02 x10^3/uL (0-0.4); Eosinophil (Absolute #) 0 x10^3/uL (0-0.5); Hematocrit 49.1 % (42-50); Hemoglobin 17.1 g/dL (12.5-18.0); IMMATURE GRAN # 0.05 x10^3u/L (0.00-0.03); IMMATURE GRAN % 0.4 % (0.00-0.4); Lymphocyte (Absolute #) 1.01 x10^3/uL (1.0-4.6); Lymphocytes % 8.1 % (24.0-44.0); Mean Cell Volume 89.9 fL (78-100); Mean Corpuscular Hemoglobin 31.3 pg (26-32); Mean Corpuscular Hgb Concent. 34.8 g/dL (32-36); Mean Platelet Volume 10.4 fL (7.5-11.0); Monocyte (Absolute #) 0.27 x10^3/uL (0.0-1.3); Monocytes % 2.2 % (0.0-12.0); Neutrophil % 89.1 % (36.0-66.0); Platelet Count 307 x10^3/uL (150-450); Red Blood Count 5.46 x10^6/uL (4.1-5.6); Red Cell Distribution Width 11.7 % (11.5-14.0); White Blood Count 12.4 x10^3/uL (4.0-10.5)
[2023-07-12] MEDS ORDERED: Zofran 4 MG/2 ML VIAL ONE (19:16)
[2023-07-12] MEDS ORDERED: Sodium Chloride 0.9% 1000 ML 1,000 ML ONE (19:16)
[2023-07-12] MEDS ORDERED: ROCEPHIN 1 Gm-D5w 50 ml Bag** 1 G/50 ML IVPB IV ONE (19:16)
[2023-07-12] MEDS ORDERED: ROCEPHIN 1 Gm-D5w 50 ml Bag** 1 G/50 ML IVPB IV STA (19:18)
[2023-07-12 19:32] LABS: ALBUMIN 4.6 g/dL (3.5-5.0); ALKALINE PHOSPHATASE 87 U/L (38-126); ANION GAP 15.3 MEQ/L (5-15); BLOOD UREA NITROGEN 7 mg/dL (9-20); CHLORIDE 105 mmol/L (98-107); Calcium 9.3 mg/dL (8.4-10.2); Carbon Dioxide 22 mmol/L (22-30); EST GLOMERULAR FILTRATION RATE > 60.0 ML/MIN; Glucose 122 mg/dL (74-106); Potassium 3.8 mmol/L (3.5-5.1); SGOT/AST 29 U/L (17-59); SGPT/ALT 26 U/L (0-50); SODIUM 139 mmol/L (137-145); Total Protein 7.6 g/dL (6.3-8.2)
[2023-07-12] MEDS ORDERED: MOTRIN 400 MG PO ONE (19:45)
[2023-07-12] MEDS ORDERED: TYLENOL 325 MG PO ONE (19:45)
[2023-07-12 19:49] VITALS: RESP 20
[2023-07-12] MEDS ORDERED: MOTRIN 400 MG ONE (19:55)
[2023-07-12] MEDS ORDERED: TYLENOL 325 MG ONE (19:55)
[2023-07-12 20:20] VITALS: BP 156/90; PULSE 59
== END 2023-07-12 20:33 | disposition home or self-care (01) ==
LOC: ED 18:35
DX: K04.7 Periapical abscess without sinus (principal); E86.0 Dehydration; R50.9 Fever, unspecified; E78.5 Hyperlipidemia, unspecified; Z79.891 Long term (current) use of opiate analgesic; Z79.899 Other long term (current) drug therapy; Z72.0 Tobacco use
CPT/HCPCS: 36415; 80053; 85025; 96360; 96365; 96374; 99284; J0696; J2405; A9270-GY

== ENCOUNTER 2023-11-29 21:17 | Emergency (ER) | payer OTHER ==
--- NOTE | 2023-11-29 21:24 | ERPHSYRPT ---
- History of Present Illness Time Seen by Provider: 11/29/23 21:24 Source: patient, family Exam Limitations: no limitations Physician History: pt was grinding metal and got a dontrell in his right eye today with irritation. globe appears intact. metal flake removed with Q tip after tetracaine local and risk benefit discussion with pt and he agrees to proceed. also updated td\ap after discussion risk benefits. and e mycioin ointment after discussion risks/benefits. negative siedels after staining, and no FB with double lid eversion. ant chamber clear and intact. visual acuity is 20/20 each eye near . 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: No Allergies/Adverse Reactions: No Known Drug Allergies Allergy (Verified 11/29/23 21:31) Home Medications: Atorvastatin Calcium 1 ea PO DAILY 01/09/22 [History] Omeprazole 10 mg PO DAILY 09/27/22 [History] Buprenorphine HCl/Naloxone HCl [Suboxone 8 mg-2 mg Sl Film] 1 each SL DAILY 07/12/23 [History] OLANZapine [Zyprexa] 10 mg PO HS 07/12/23 [History] Hx Tetanus, Diphtheria Vaccination/Date Given: Yes Hx Influenza Vaccination/Date Given: No Hx Pneumococcal Vaccination/Date Given: No Travel Risk - Vaccine Status Have you recieved a Covid-19 vaccination: 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 - Review of Systems Constitutional: No Fever, No Chills Eyes: Eye Pain, Eye Redness, Photophobia Ears, Nose, & Throat: No Symptoms Respiratory: No Cough, No Dyspnea Cardiac: No Chest Pain, No Edema, No Syncope Abdominal/Gastrointestinal: No Abdominal Pain, No Nausea, No Vomiting, No Diarrhea Genitourinary Symptoms: No Dysuria Musculoskeletal: No Back Pain, No Neck Pain Skin: No Rash Neurological: No Dizziness, No Focal Weakness, No Sensory Changes Psychological: No Symptoms Endocrine: No Symptoms Hematologic/Lymphatic: No Symptoms Immunological/Allergic: No Symptoms All Other Systems: Reviewed and Negative - Past Medical History Pertinent Past Medical History: Yes Neurological History: No Pertinent History ENT History: Other Cardiac History: High Cholesterol Respiratory History: No Pertinent History Endocrine Medical History: No Pertinent History Musculoskeletal History: Arthritis GI Medical History: No Pertinent History History: Other Psycho-Social History: Bipolar Male Reproductive Disorders: No Pertinent History Other Medical History: urinary flow slow. vertigo - Past Surgical History Past Surgical History: No Neuro Surgical History: No Pertinent History Cardiac: No Pertinent History Respiratory: No Pertinent History Gastrointestinal: No Pertinent History Genitourinary: No Pertinent History Musculoskeletal: No Pertinent History Male Surgical History: No Pertinent History Other Surgical History: ORAL - Social History Smoking Status: Current every day smoker How long have you smoked: 20 yrs Exposure to second hand smoke: No Alcohol Use: Socially Drug Use: none Patient Lives Alone: No Significant Family History: no pertinent family hx - Nursing Vital Signs Nursing Vital Signs: Initial Vital Signs Temperature 97.8 F 11/29/23 21:28 Pulse Rate 98 H 11/29/23 21:28 Respiratory Rate 16 11/29/23 21:28 Blood Pressure 150/81 11/29/23 21:28 O2 Sat by Pulse Oximetry 97 11/29/23 21:28 Pain Scale Pain Intensity 0 - Physical Exam General Appearance: no apparent distress Vision Acuity Degree Evaluation Phase: Uncorrected Vision Acuity Right Eye: 20/20 Vision Acuity Left Eye: 20/20 Eye Exam: right eye: corneal abrasion, foreign body, bilateral eye: normal inspection, PERRL, EOMI Ears, Nose, Throat Exam: normal ENT inspection, TMs normal, pharynx normal Neck Exam: normal inspection, non-tender, supple, full range of motion Respiratory Exam: normal breath sounds, chest tenderness, lungs clear Cardiovascular Exam: regular rate/rhythm, normal heart sounds, normal peripheral pulses Gastrointestinal Exam: soft, normal bowel sounds Extremity Exam: normal inspection, normal range of motion Neurologic: alert, oriented x 3, cooperative, normal mood/affect, nml station & gait Skin Exam: normal color, warm, dry SpO2 Interpretation: normal SpO2: 97 O2 Delivery: Room Air Procedures - Eye Procedure Time of Procedure: 23:22 Tetracaine Drops Administered: Yes Eye FB Removal: removal w/ cotton swab Remaining Material after FB Removal: rust ring Eye Irrigated w/ Saline (ccs): 30 Antibiotic Oinment/Drps Admin: right eye - Course Nursing assessment & vital signs reviewed: Yes Ordered Tests: Medication Summary Discontinued Medications Generic Name Dose Route Start Last Admin Trade Name Freq PRN Reason Stop Dose Admin Erythromycin 3.5 gm 11/29/23 22:47 Erythromycin Base 1 Gm Tube Eye Ointment OP 11/29/23 22:48 STAT STA Eye Irrigation Solution Confirm 11/29/23 21:58 Sodium/Potassium/Adrian/Magnesium 30 Ml Eye Wash Administered 11/29/23 21:59 Dose 30 ml .ROUTE .STK-MED ONE Fluorescein Sodium Confirm 11/29/23 21:57 Fluorescein Sodium 1 Mg/Strip Strip Administered 11/29/23 21:58 Dose 1 mg OP .STK-MED ONE Tetracaine HCl Confirm 11/29/23 21:57 Tetracaine Hcl/Pf 4 Ml Bottle Administered 11/29/23 21:58 Dose 4 ml OP .STK-MED ONE - Progress Progress: improved, re-examined Counseled pt/family regarding: diagnosis, need for follow-up Medical Desision Making - Discussion of managment Reviewed:: Test results, Need for additional workup Agreed on:: Treatment plan, need for follow-up - Diagnostic Testing Diagnostic test were ordered, analyzed, and reviewed by me: Yes Radiological Interpretation: Interpreted by me - Risk of complications The pt has a mod risk of morbidity or mortality based on: Need for prescription drug management - Departure Departure Disposition: Home Clinical Impression: FB right cornea with abrasion Condition: Good Critical Care Time: No Referrals: MISTY AMARO NP [Primary Care Provider] - Follow up/PCP as directed Instructions: Foreign Body in Eye (DC), Corneal Abrasion (DC) Additional Instructions: It is important to followup with the eye Dr. this week to recheck for rust ring and have any additional treatment. use the ointment for at least 1 week. return meantime if pain increases, visual changes, drainage or any other concerns. ALSO FOLLOWUP YOUR BLOOD PRESSURE WITH YOUR dR. IT WAS A LITTLE ELEVATED. Prescriptions: Erythromycin Base 3.5 gm [Erythromycin 3.5 GM OPHTH.] 3.5 gm OP TID 7 Days #1 cartridge
[2023-11-29 21:29] VITALS: BP 150/81; RESP 16; TEMP 97.8; O2SAT 97
[2023-11-29] MEDS ORDERED: TETRACAINE 0.5% STERI-UNIT SOL OP ONE (21:57)
[2023-11-29] MEDS ORDERED: Fluor-I-Strip/Ful-Flo OP ONE (21:57)
[2023-11-29] MEDS ORDERED: Eye-Stream Solution ONE (21:58)
[2023-11-29] MEDS: Erythromycin 1 GM OP STA (23:36)
[2023-11-29 23:47] VITALS: PULSE 89
== END 2023-11-29 23:47 | disposition home or self-care (01) ==
LOC: ED 21:17
DX: T15.01XA Foreign body in cornea, right eye, initial encounter (principal); E78.5 Hyperlipidemia, unspecified; Z79.891 Long term (current) use of opiate analgesic; Z79.899 Other long term (current) drug therapy; Z72.0 Tobacco use
CPT/HCPCS: 65220; 99281; A9270-GY

== ENCOUNTER 2024-02-28 13:42 | Emergency (ER) | payer OTHER ==
--- NOTE | 2024-02-28 13:49 | ERPHSYRPT ---
- History of Present Illness Time Seen by Provider: 02/28/24 13:49 Source: patient Exam Limitations: no limitations Allergies/Adverse Reactions: No Known Drug Allergies Allergy (Verified 11/29/23 21:31) Home Medications: Atorvastatin Calcium 1 ea PO DAILY 01/09/22 [History] Omeprazole 10 mg PO DAILY 09/27/22 [History] Buprenorphine HCl/Naloxone HCl [Suboxone 8 mg-2 mg Sl Film] 1 each SL DAILY 07/12/23 [History] OLANZapine [Zyprexa] 10 mg PO HS 07/12/23 [History] Hx Tetanus, Diphtheria Vaccination/Date Given: Yes Hx Influenza Vaccination/Date Given: No Hx Pneumococcal Vaccination/Date Given: No - Past Medical History Pertinent Past Medical History: Yes Neurological History: No Pertinent History ENT History: Other Cardiac History: High Cholesterol Respiratory History: No Pertinent History Endocrine Medical History: No Pertinent History Musculoskeletal History: Arthritis GI Medical History: No Pertinent History History: Other Psycho-Social History: Bipolar Male Reproductive Disorders: No Pertinent History Other Medical History: urinary flow slow. vertigo - Past Surgical History Past Surgical History: No Neuro Surgical History: No Pertinent History Cardiac: No Pertinent History Respiratory: No Pertinent History Gastrointestinal: No Pertinent History Genitourinary: No Pertinent History Musculoskeletal: No Pertinent History Male Surgical History: No Pertinent History Other Surgical History: ORAL Significant Family History: no pertinent family hx - Social History Smoking Status: Current every day smoker How long have you smoked: 20 yrs Exposure to second hand smoke: No Alcohol Use: Socially Drug Use: none Patient Lives Alone: No - Departure Referrals: MISTY AMARO NP [Primary Care Provider] - Follow up/PCP as directed
[2024-02-28 14:15] VITALS: TEMP 98.7
--- NOTE | 2024-02-28 14:22 | ERPHSYRPT ---
- History of Present Illness Time Seen by Provider: 02/28/24 13:49 Historian: patient, family Exam Limitations: no limitations Patient Subjective Stated Complaint: Abdominal pain Triage Nursing Assessment: Patient ambulated back to ED and transferred self to bed. Patient A+O X3. Patient's skin pink, warm and dry. Patient complains of intermittent abdominal pain for the past week. Patient states on January 18 he had two teeth pulled and ever since he has been having N/V and abdominal pain intermittently. Patient states his abdomen feels like there are butterflys in his stomach. Patient currently denies pain or discomfort. Physician History: This is a 38-year-old white male patient who is chronically on Suboxone, ol anzapine, atorvastatin who underwent dental surgery approximately February 19, 2024. Postoperatively he has not been feeling that well. After approximately 4 days, he has had symptoms of vomiting as well as abdominal discomfort described as butterflies in my stomach on methamphetamines. Patient is not suicidal and is not homicidal. He is a patient of nurse practitioner Jorge Alberto. He states he went to the walk-in clinic earlier today and they performed viral swabs which were negative per his report. I will locate and review the those study results. He was given a prescription of Zofran. He denies chest pain. He denies shortness of breath. Timing/Duration: day(s) (6 to 7 days), other (Symptoms persistent) Activities at Onset: none Quality: aching (Generalized) Abdominal Pain Onset Location: generalized abdomen Pain Radiation: no radiation Severity of Pain-Max: mild Severity of Pain-Current: mild Modifying Factors: Improves With: vomiting Associated Symptoms: loss of appetite, nausea, vomiting, weakness, other (Constipation. No bowel movement in approximately 5 days per his report) Previous symptoms: no prior history Allergies/Adverse Reactions: No Known Drug Allergies Allergy (Verified 11/29/23 21:31) Home Medications: Atorvastatin Calcium 1 ea PO DAILY 01/09/22 [History] Omeprazole 10 mg PO DAILY 09/27/22 [History] Buprenorphine HCl/Naloxone HCl [Suboxone 8 mg-2 mg Sl Film] 1 each SL DAILY 07/12/23 [History] OLANZapine [Zyprexa] 10 mg PO HS 07/12/23 [History] Hx Tetanus, Diphtheria Vaccination/Date Given: Yes Hx Influenza Vaccination/Date Given: No Hx Pneumococcal Vaccination/Date Given: No Immunizations Up to Date: Yes Travel Risk - International Travel Have you traveled outside of the country in past 3 weeks: No - Emerging Infectious Disease Are you exhibiting symptoms associated with any current EIDs: No Symptoms: Abdominal Pain - Review of Systems Constitutional: Weakness Eyes: No Symptoms Ears, Nose, & Throat: No Symptoms Respiratory: No Symptoms Cardiac: No Symptoms Abdominal/Gastrointestinal: Abdominal Pain, Nausea, Vomiting, Appetite Changes Genitourinary Symptoms: No Symptoms Musculoskeletal: No Symptoms Skin: No Symptoms Neurological: No Symptoms Psychological: No Symptoms Endocrine: No Symptoms Hematologic/Lymphatic: No Symptoms Immunological/Allergic: No Symptoms All Other Systems: Reviewed and Negative - Past Medical History Pertinent Past Medical History: Yes Neurological History: No Pertinent History ENT History: Other Cardiac History: High Cholesterol Respiratory History: No Pertinent History Endocrine Medical History: No Pertinent History Musculoskeletal History: Arthritis GI Medical History: No Pertinent History History: Other Psycho-Social History: Bipolar Male Reproductive Disorders: No Pertinent History Other Medical History: urinary flow slow. vertigo - Past Surgical History Past Surgical History: No Neuro Surgical History: No Pertinent History Cardiac: No Pertinent History Respiratory: No Pertinent History Gastrointestinal: No Pertinent History Genitourinary: No Pertinent History Musculoskeletal: No Pertinent History Male Surgical History: No Pertinent History Other Surgical History: ORAL Significant Family History: no pertinent family hx - Social History Smoking Status: Current every day smoker How long have you smoked: 20 yrs Exposure to second hand smoke: No Alcohol Use: Socially Drug Use: none Patient Lives Alone: No - Nursing Vital Signs Nursing Vital Signs: Initial Vital Signs Temperature 98.7 F 02/28/24 14:04 Pulse Rate 76 02/28/24 14:04 Respiratory Rate 20 02/28/24 14:04 Blood Pressure 143/89 02/28/24 14:04 O2 Sat by Pulse Oximetry 96 02/28/24 14:04 Pain Scale Pain Intensity 0 - Physical Exam General Appearance: no apparent distress, alert, anxiety, thin Eye Exam: PERRL/EOMI, eyes nml inspection Ears, Nose, Throat Exam: normal ENT inspection, moist mucous membranes Neck Exam: normal inspection, non-tender, supple, full range of motion Respiratory Exam: normal breath sounds, lungs clear, airway intact, No chest tenderness, No respiratory distress Cardiovascular Exam: regular rate/rhythm, normal heart sounds, normal peripheral pulses Gastrointestinal/Abdomen Exam: soft, normal bowel sounds, tenderness (Mild generalized), guarding (Mild generalized), No rebound Rectal Exam: not done Back Exam: normal inspection, normal range of motion, No CVA tenderness, No vertebral tenderness Extremity Exam: normal inspection, normal range of motion, pelvis stable Neurologic Exam: alert, oriented x 3, cooperative, centrifugal spinner II-XII nml as tested, normal mood/affect, nml cerebellar function, nml station & gait, sensation nml Skin Exam: normal color, warm, dry Lymphatic Exam: No adenopathy SpO2 Interpretation: normal SpO2: 96 O2 Delivery: Room Air - Course Nursing assessment & vital signs reviewed: Yes Ordered Tests: Active Orders 24 hr Category Date Time Status Clean Catch Urine Specimen STAT Care 02/28/24 14:15 Active IV Insertion STAT Care 02/28/24 14:15 Active ABDOMEN AND PELVIS W/0 CONTRAS [CT] Stat Exams 02/28/24 14:16 Completed AMYLASE Stat Lab 02/28/24 14:26 Completed CBC W DIFF Stat Lab 02/28/24 14:26 Completed CMP Stat Lab 02/28/24 14:26 Completed LIPASE Stat Lab 02/28/24 14:26 Completed Lactic Acid Stat Lab 02/28/24 14:25 Completed MAG [MAGNESIUM] Stat Lab 02/28/24 14:26 Completed UA W/RFX UR CULTURE Stat Lab 02/28/24 15:45 Completed Urine Triage Profile Stat Lab 02/28/24 15:45 Received Medication Summary Discontinued Medications Generic Name Dose Route Start Last Admin Trade Name Freq PRN Reason Stop Dose Admin Sodium Chloride 1,000 mls @ 999 mls/hr 02/28/24 14:15 02/28/24 15:34 Sodium Chloride 0.9% 1000 Ml IV 02/28/24 15:15 Infused .Q1H1M STA Infusion Sodium Chloride Confirm 02/28/24 14:26 Sodium Chloride 0.9% 1000 Ml Administered 02/28/24 14:27 Dose 1,000 mls @ ud .ROUTE .STK-MED ONE Ondansetron HCl 4 mg 02/28/24 14:15 02/28/24 14:27 Ondansetron Hcl 4 Mg/2 Ml Vial IV 02/28/24 14:16 4 mg STAT ONE Administration Ondansetron HCl Confirm 02/28/24 14:26 Ondansetron Hcl 4 Mg/2 Ml Vial Administered 02/28/24 14:27 Dose 4 mg .ROUTE .STK-MED ONE Pantoprazole Sodium 40 mg 02/28/24 14:15 02/28/24 14:27 Pantoprazole 40 Mg Vial IV 02/28/24 14:16 40 mg STAT ONE Administration Pantoprazole Sodium Confirm 02/28/24 14:26 Pantoprazole 40 Mg Vial Administered 02/28/24 14:27 Dose 40 mg IV .STK-MED ONE Lab/Rad Data: Laboratory Result Diagrams 02/28/24 14:26 02/28/24 14:26 Laboratory Results 02/28/24 02/28/24 02/28/24 Range/Units 15:45 14:26 14:26 WBC (4.0-10.5) x10^3/uL RBC (4.1-5.6) x10^6/uL Hgb (12.5-18.0) g/dL Hct (42-50) % MCV (78-100) fL MCH (26-32) pg MCHC (32-36) g/dL RDW (11.5-14.0) % Plt Count (150-450) x10^3/uL MPV (7.5-11.0) fL Gran % (36.0-66.0) % Immature Gran % (Auto) (0.00-0.4) % Nucleat RBC Rel Count (0.00-0.1) % Eos # (Auto) (0-0.5) x10^3/uL Immature Gran # (Auto) (0.00-0.03) x10^3u/L Absolute Lymphs (auto) (1.0-4.6) x10^3/uL Absolute Monos (auto) (0.0-1.3) x10^3/uL Absolute Nucleated RBC (0.00-0.01) x10^3u/L Lymphocytes % (24.0-44.0) % Monocytes % (0.0-12.0) % Eosinophils % (0.00-5.0) % Basophils % (0.0-0.4) % Absolute Granulocytes (1.4-6.9) x10^3/uL Basophils # (0-0.4) x10^3/uL Sodium 139 (135-145) mmol/L Potassium 3.7 (3.5-5.1) mmol/L Chloride 104 (98-107) mmol/L Carbon Dioxide 27 (22-30) mmol/L Anion Gap 11.8 (5-15) MEQ/L BUN 10 (9-20) mg/dL Creatinine 0.66 (0.66-1.25) mg/dL Estimated GFR 123.1 ML/MIN Glucose 114 H (74-106) mg/dL Lactic Acid (0.4-2.0) Calcium 9.3 (8.4-10.2) mg/dL Magnesium 1.7 (1.6-2.3) mg/dL Total Bilirubin 0.60 (0.2-1.3) mg/dL AST 27 (17-59) U/L ALT 20 (0-50) U/L Alkaline Phosphatase 62 (38-126) U/L Serum Total Protein 7.3 (6.3-8.2) g/dL Albumin 4.3 (3.5-5.0) g/dL Amylase 61 (30-110) U/L Lipase 28 (23-300) U/L Urine Color Yellow (Yellow) Urine Appearance Sl Cloudy* A (Clear) Urine pH 7.0 (4.6-8.0) Ur Specific [place] 1.015 (1.005-1.030) Urine Protein Negative (Negative) Urine Glucose (UA) Negative (Negative) mg/dL Urine Ketones Trace A (Negative) Urine Blood Negative (Negative) Urine Nitrite Negative (Negative) Urine Bilirubin Negative (Negative) Urine Urobilinogen 1.0 A (0.2) mg/dL Ur Leukocyte Esterase Negative (Negative) U Hyaline Cast (Auto) NONE SEEN (0-2) /LPF Urine Microscopic RBC 0-2 (0-5) /HPF Urine Microscopic WBC 0-2 (0-5) /HPF Ur Epithelial Cells None Seen (None Seen) /HPF Urine Bacteria None Seen (None Seen) /HPF Urine Culture Reflexed NO (NO) 02/28/24 02/28/24 Range/Units 14:26 14:25 WBC 8.0 (4.0-10.5) x10^3/uL RBC 4.88 (4.1-5.6) x10^6/uL Hgb 15.4 (12.5-18.0) g/dL Hct 43.3 (42-50) % MCV 88.7 (78-100) fL MCH 31.6 (26-32) pg MCHC 35.6 (32-36) g/dL RDW 11.8 (11.5-14.0) % Plt Count 245 (150-450) x10^3/uL MPV 10.4 (7.5-11.0) fL Gran % 69.7 H (36.0-66.0) % Immature Gran % (Auto) 0.3 (0.00-0.4) % Nucleat RBC Rel Count 0.0 (0.00-0.1) % Eos # (Auto) 0.11 (0-0.5) x10^3/uL Immature Gran # (Auto) 0.02 (0.00-0.03) x10^3u/L Absolute Lymphs (auto) 1.62 (1.0-4.6) x10^3/uL Absolute Monos (auto) 0.63 (0.0-1.3) x10^3/uL Absolute Nucleated RBC 0.00 (0.00-0.01) x10^3u/L Lymphocytes % 20.3 L (24.0-44.0) % Monocytes % 7.9 (0.0-12.0) % Eosinophils % 1.4 (0.00-5.0) % Basophils % 0.4 (0.0-0.4) % Absolute Granulocytes 5.59 (1.4-6.9) x10^3/uL Basophils # 0.03 (0-0.4) x10^3/uL Sodium (135-145) mmol/L Potassium (3.5-5.1) mmol/L Chloride (98-107) mmol/L Carbon Dioxide (22-30) mmol/L Anion Gap (5-15) MEQ/L BUN (9-20) mg/dL Creatinine (0.66-1.25) mg/dL Estimated GFR ML/MIN Glucose (74-106) mg/dL Lactic Acid 0.9 (0.4-2.0) Calcium (8.4-10.2) mg/dL Magnesium (1.6-2.3) mg/dL Total Bilirubin (0.2-1.3) mg/dL AST (17-59) U/L ALT (0-50) U/L Alkaline Phosphatase (38-126) U/L Serum Total Protein (6.3-8.2) g/dL Albumin (3.5-5.0) g/dL Amylase (30-110) U/L Lipase (23-300) U/L Urine Color (Yellow) Urine Appearance (Clear) Urine pH (4.6-8.0) Ur Specific [place] (1.005-1.030) Urine Protein (Negative) Urine Glucose (UA) (Negative) mg/dL Urine Ketones (Negative) Urine Blood (Negative) Urine Nitrite (Negative) Urine Bilirubin (Negative) Urine Urobilinogen (0.2) mg/dL Ur Leukocyte Esterase (Negative) U Hyaline Cast (Auto) (0-2) /LPF Urine Microscopic RBC (0-5) /HPF Urine Microscopic WBC (0-5) /HPF Ur Epithelial Cells (None Seen) /HPF Urine Bacteria (None Seen) /HPF Urine Culture Reflexed (NO) - Progress Progress: improved, re-examined Progress Note: 02/28/24 14:21 My medical decision making and assignment of moderate complexity to today's medical issue in this patient is based on review of past medical history, review of the patient's medication list, review the patient drug allergy list, history of present illness and physical findings on examination. The workup in this patient includes placement of intravenous line, infusion of normal saline solution, infusion of Zofran, infusion of Protonix intravenously, CBC, CMP, amylase, lipase, lactic acid, magnesium level, urinalysis and urine drug screen. In addition, I am ordering a CAT scan of the abdomen pelvis without contrast. Differential diagnoses include anxiety about health, pancreatitis, colitis, bowel obstruction, peptic ulcer disease 02/28/24 16:06 CT scan of the abdomen pelvis without contrast was interpreted by the radiologist and I reviewed the impression. There are no acute findings. There is no acute appendicitis. Gallbladder is unremarkable. 02/28/24 16:07 I interpreted the patient's laboratory data results. There is no evidence of any acute or emergent medical issue based on the laboratory data results. Counseled pt/family regarding: lab results, diagnosis, need for follow-up, rad results Medical Desision Making - Independent Historian Additional History obtained from: Mother - Diagnostic Testing Diagnostic test were ordered, analyzed, and reviewed by me: Yes Radiological Interpretation: Reviewed by me, Teleradiologist Report - Risk of complications Low Risk: Low risk of morbidity from additional dx testing or treatment - Departure Departure Disposition: Home Clinical Impression: Pain, abdominal, nonspecific Condition: Stable Critical Care Time: No Referrals: MISTY AMARO NP [Primary Care Provider] - Follow up/PCP as directed Additional Instructions: Drink plenty of fluids. Avoid fatty greasy spicy foods, call your primary care provider on 03/01/2024, to make arrangements for follow-up appointment for further evaluation and management. Continue your outpatient medications as prescribed. Prescriptions: Ondansetron ODT 4 MG [Zofran Odt 4 mg] 4 mg PO Q6H PRN PRN #10 tablet PRN Reason: Vomiting
[2024-02-28] MEDS ORDERED: Sodium Chloride 0.9% 1000 ML 1,000 ML ONE (14:26)
[2024-02-28] MEDS ORDERED: Zofran 4 MG/2 ML VIAL ONE (14:26)
[2024-02-28] MEDS ORDERED: PROTONIX 40 MG IV IV ONE (14:26)
[2024-02-28] MEDS: PROTONIX 40 MG IV IV ONE (14:27)
[2024-02-28] MEDS: Zofran 4 MG/2 ML VIAL IV ONE (14:27)
[2024-02-28] MEDS: Sodium Chloride 0.9% 1000 ML 1,000 ML IV STA (14:28)
[2024-02-28 14:29] LABS: Absolute Neutrophil Ct (ANC) 5.59 x10^3/uL (1.4-6.9); BASOPHIL % 0.4 % (0.0-0.4); Basophil (Absolute #) 0.03 x10^3/uL (0-0.4); Eosinophil % 1.4 % (0.00-5.0); Eosinophil (Absolute #) 0.11 x10^3/uL (0-0.5); Hematocrit 43.3 % (42-50); Hemoglobin 15.4 g/dL (12.5-18.0); IMMATURE GRAN # 0.02 x10^3u/L (0.00-0.03); IMMATURE GRAN % 0.3 % (0.00-0.4); Lymphocyte (Absolute #) 1.62 x10^3/uL (1.0-4.6); Lymphocytes % 20.3 % (24.0-44.0); Mean Cell Volume 88.7 fL (78-100); Mean Corpuscular Hemoglobin 31.6 pg (26-32); Mean Corpuscular Hgb Concent. 35.6 g/dL (32-36); Mean Platelet Volume 10.4 fL (7.5-11.0); Monocyte (Absolute #) 0.63 x10^3/uL (0.0-1.3); Monocytes % 7.9 % (0.0-12.0); Neutrophil % 69.7 % (36.0-66.0); Platelet Count 245 x10^3/uL (150-450); Red Blood Count 4.88 x10^6/uL (4.1-5.6); Red Cell Distribution Width 11.8 % (11.5-14.0)
[2024-02-28 14:43] LABS: ALBUMIN 4.3 g/dL (3.5-5.0); ANION GAP 11.8 MEQ/L (5-15); BILIRUBIN,TOTAL 0.6 mg/dL (0.2-1.3); Calcium 9.3 mg/dL (8.4-10.2); Creatinine 1 0.66 mg/dL (0.66-1.25); EST GLOMERULAR FILTRATION RATE 123.1 ML/MIN; Potassium 3.7 mmol/L (3.5-5.1); Total Protein 7.3 g/dL (6.3-8.2)
[2024-02-28 15:19] VITALS: PULSE 75
--- NOTE | 2024-02-28 15:35 | XRAY ---
CLINICAL HISTORY: ABD pain; vomiting COMPARISON: 11/26/2023. TECHNIQUE: A CT scan of the abdomen and pelvis was performed without IV contrast. Coronal and sagittal reconstructive images were also obtained. One of the following dose reduction techniques were utilized for this exam: Automated exposure control, adjustment of the mA and/or kV according to patient size, and use of iterative reconstruction. FINDINGS: The liver is of average size, with regular contour, and homogeneous texture with no focal lesion that could be detected on a non-contrast basis. No intra hepatic biliary radical dilatation. The GB appears unremarkable. The spleen is of average size and shape with homogeneous parenchyma and no focal lesion could be noted on a non-contrast basis. The left kidney is relatively small in size with a focal area of cortical thinning at the lower pole. No stones or back pressure changes. The right kidney is of normal size, shape, and parenchymal thickness with no stones, back pressure changes or space-occupying lesions on a non-contrast basis. The other retroperitoneal structures including the pancreas and adrenal glands are grossly within normal limits. No significant lymph demetrio enlargement or ascetic fluid collection. No acute appendicitis. The prostate is of average size and shape. Normal filling of the urinary bladder with no stones, masses, or diverticula. Bone window settings showed no evidence of fractures or destructive lesions. Lung window settings showed a normal appearance of both basal lung segments. IMPRESSION: 1. Small left kidney with lower pole focal cortical thinning could be scarring versus persistent lobulation. Clinical correlation and follow-up is advised. 2. No acute findings. 3. No interval changes. Electronically Signed by: Brian Stapleton MD. (02/28/2024 15:31:13 EDT)
[2024-02-28 15:56] LABS: ADD URINE CULTURE? NO (NO); Appearance Sl Cloudy* (Clear); Bacteria None Seen /HPF (None Seen); Bilirubin Negative (Negative); Blood Negative (Negative); Epithelial Cells None Seen /HPF (None Seen); Glucose, Urine Negative (Negative); Hyaline Casts NONE SEEN /LPF (0-2); Ketones Trace (Negative); Leukocyte Esterase Negative (Negative); Nitrite Negative (Negative); Protein,Urine Dip Negative (Negative); RBC 0-2 /HPF (0-5); Specific Gravity 1.015 (1.005-1.030); WBC 0-2 /HPF (0-5)
[2024-02-28 16:06] LABS: Amphetamine,Urine NEGATIVE (NEGATIVE); Barbiturate,Urine NEGATIVE (NEGATIVE); Benzodiazepine,Urine NEGATIVE (NEGATIVE); Cocaine,Urine NEGATIVE (NEGATIVE); Opiate,Urine NEGATIVE (NEGATIVE); PCP,Urine NEGATIVE (NEGATIVE); THC,Urine POSITIVE (NEGATIVE)
[2024-02-28 16:08] LABS: Methadone,Urine NEGATIVE (NEGATIVE)
[2024-02-28 16:10] VITALS: O2SAT 96
[2024-02-28 16:30] VITALS: BP 146/95; RESP 18
== END 2024-02-28 16:45 | disposition home or self-care (01) ==
LOC: ED 13:42
DX: R10.9 Unspecified abdominal pain (principal); R11.2 Nausea with vomiting, unspecified; E78.5 Hyperlipidemia, unspecified; Z79.891 Long term (current) use of opiate analgesic; Z79.899 Other long term (current) drug therapy; Z72.0 Tobacco use
CPT/HCPCS: 36000; 36415; 74176; 80053; 80307; 81001; 82150; 83605; 83690; 83735; 85025; 96374; 96375; 99284; J2405

== ENCOUNTER 2024-03-16 06:21 | Day surgery (SDC) | payer OTHER ==
[2024-03-16] MEDS ORDERED: Lactated Ringers 1,000 ML IV ONE (06:56)
[2024-03-16] MEDS: Lactated Ringers 1,000 ML IV SCH (07:13)
[2024-03-16] MEDS ORDERED: DIPRIVAN 200 MG/20 ML IV ONE (07:53)
[2024-03-16] MEDS ORDERED: Versed 2 MG/2 ML Injection ONE (07:53)
[2024-03-16 08:55] VITALS: RESP 16; O2SAT 96
[2024-03-16 09:12] VITALS: BP 137/70; PULSE 62; TEMP 97
--- NOTE | 2024-03-16 10:27 | OP ---
SURGERY DATE/TIME: 03/16/2024 0753 PREOPERATIVE DIAGNOSIS: Vomiting. POSTOPERATIVE DIAGNOSIS: Gastritis. PROCEDURE: Esophagogastroduodenoscopy with cold forceps biopsy. SURGEON: Dr. Villaseñor. ANESTHESIA: Medications were given by the anesthesia department. BRIEF HISTORY: The patient is a 38-year-old white male patient who presents now for vomiting issues; this has gone on for the past few weeks. The patient said that he is fine in the morning. When he goes into work about two hours after he does he will have vomiting episode and feeling like anxiousness in his stomach. It is noted that the patient is on multiple medications for anxiety and depression issues and he also partakes of marijuana on a daily basis. DESCRIPTION OF PROCEDURE: The patient was placed in the left lateral decubitus position. A bite block placed and the flexible Olympus gastroscope was used to intubate the oropharynx. A view of the larynx obtained and was normal. The scope was easily introduced into the esophagus which appeared to be normal throughout its length. The stomach entered where normal gastric rugal folds were seen and these distended nicely with insufflation of air. The scope was passed along the greater curvature of the stomach to the antrum. There appeared to be a diffuse erythema here but no erosions or ulcerations. The pylorus intubated and duodenum inspected and found to be normal. The scope is withdrawn towards the stomach. Again, retroflex view of the lesser curvature, fundus and cardia regions of the stomach were obtained and appeared to be essentially normal. The scope was then redirected towards the gastric antrum and biopsies were obtained from the gastric antrum to rule out the presence of Helicobacter pylori-type organisms. The scope was then removed from the patient who tolerated the procedure well and was sent back to outpatient recovery in good condition.
== END 2024-03-16 09:15 | disposition home or self-care (01) ==
LOC: SDC 06:21
PROVIDERS: ATTEND Family Medicine
DX: K29.70 Gastritis, unspecified, without bleeding (principal); R11.10 Vomiting, unspecified
CPT/HCPCS: J2250; J2704

== ENCOUNTER 2025-05-22 11:42 | Emergency (ER) | payer OTHER ==
[2025-05-22] MEDS ORDERED: XYLOCAINE 1% HCL 20 ML MDV IJ ONE (11:43)
[2025-05-22 12:01] VITALS: TEMP 97.7
[2025-05-22 12:34] LABS: BASOPHIL % 0.4 % (0.2-1.2); Basophil (Absolute #) 0.05 x10^3/uL (0.01-0.08); Eosinophil (Absolute #) 0.04 x10^3/uL (0.04-0.54); Hematocrit 49.0 % (40.1-51.0); Hemoglobin 16.6 g/dL (13.7-17.5); IMMATURE GRAN # 0.04 x10^3u/L (0.001-0.031); IMMATURE GRAN % 0.3 % (0.001-0.429); Lymphocyte (Absolute #) 0.91 x10^3/uL (1.32-3.57); Mean Corpuscular Hemoglobin 31.8 pg (25.7-32.2); Mean Corpuscular Hgb Concent. 33.9 g/dL (32.3-36.5); Monocyte (Absolute #) 0.63 x10^3/uL (0.30-0.82); NUCLEATED RBC # 0.00 x10^3u/L (0.00-0.012); NUCLEATED RBC % 0.0 % (0.00-0.2); Platelet Count 200 x10^3/uL (163-337); Red Blood Count 5.22 x10^6/uL (4.63-6.08); White Blood Count 13.1 x10^3/uL (4.23-9.07)
--- NOTE | 2025-05-22 12:47 | ERPHSYRPT ---
- History of Present Illness Time Seen by Provider: 05/22/25 12:42 Source: patient, family Exam Limitations: no limitations Patient Subjective Stated Complaint: Pt. states, "I sort of passed out this moring and my daughter said my eyes rolled back and then when I came to i was really dizzy and started vomiting. I've had this kind of thing on and off for a while and i've been seeing edwinethan bobby for it. I had an MRI. I wore a heart monitor for 2 weeks but they never sent me to a pattern shop supervisor. I was told I need a bone replaced in my Rt.ear but my ENT doesn't think that the bone is causing these problems. Its happening more and more frequently" Triage Nursing Assessment: Pt. ambulated to room without difficulty, A&Ox3, Skin [place], Cool and dry, Resp. even unlabored. No neuro defecits, speech clear. Physician History: Pt. states, "I sort of passed out this moring and my daughter said my eyes rolled back and then when I came to i was really dizzy and started vomiting. I've had this kind of thing on and off for a while and i've been seeing edwin bobby for it. I had an MRI. I wore a heart monitor for 2 weeks but they never sent me to a pattern shop supervisor. I was told I need a bone replaced in my Rt.ear but my ENT doesn't think that the bone is causing these problems. Its happening more and more frequently" Patient is 39-year-old male with significant past medical history of smoking started having a dizziness 1 year ago patient underwent extensive testing including MRI of the brain Holter monitor which did not reveal any significant findings. According to primary care physician, he is told that he has a bone in his right ear which is causing his dizziness. Patient has lost almost all hearing on his right side of the year. Patient is so unsteady that he sway himself on the left side to and while walking he almost falls on his left side patient denies any headache nausea vomiting change in the vision. Timing/Duration: gradual onset Severity: moderate ENT Location: ear (R) Associated Symptoms: ear pain (R), change in hearing, dizziness, hearing loss, No neck pain, No ringing of ears, No difficulty swallowing Allergies/Adverse Reactions: No Known Drug Allergies Allergy (Verified 05/21/24 06:50) Home Medications: Buprenorphine HCl/Naloxone HCl [Buprenorphine-Nalox 8-2 mg Tab] 0.5 tab SL DAILY 05/22/25 [History] Hx Tetanus, Diphtheria Vaccination/Date Given: No Hx Influenza Vaccination/Date Given: No Hx Pneumococcal Vaccination/Date Given: No Travel Risk - International Travel Have you traveled outside of the country in past 3 weeks: No - Emerging Infectious Disease Are you exhibiting symptoms associated with any current EIDs: No Symptoms: Abdominal Pain - Review of Systems Constitutional: No Fever, No Chills Eyes: No Symptoms Ears, Nose, & Throat: No Tinnitus Respiratory: No Cough, No Dyspnea Cardiac: No Chest Pain, No Edema, No Syncope Abdominal/Gastrointestinal: No Abdominal Pain, No Nausea, No Vomiting, No Diarrhea Genitourinary Symptoms: No Dysuria Musculoskeletal: No Back Pain, No Neck Pain Skin: No Rash Neurological: Gait Changes (sway on left side while walking with closed eye), No Dizziness, No Focal Weakness, No Sensory Changes Psychological: No Symptoms Endocrine: No Symptoms All Other Systems: Reviewed and Negative - Past Medical History Pertinent Past Medical History: Yes Neurological History: No Pertinent History ENT History: Other Cardiac History: High Cholesterol Respiratory History: No Pertinent History Endocrine Medical History: No Pertinent History Musculoskeletal History: Arthritis GI Medical History: No Pertinent History History: No Pertinent History Psycho-Social History: Bipolar Male Reproductive Disorders: No Pertinent History Other Medical History: hearing difficulties - Past Surgical History Past Surgical History: Yes Neuro Surgical History: No Pertinent History Cardiac: No Pertinent History Respiratory: No Pertinent History Gastrointestinal: No Pertinent History Genitourinary: No Pertinent History Musculoskeletal: No Pertinent History Male Surgical History: No Pertinent History Other Surgical History: ORAL srugery Significant Family History: no pertinent family hx - Social History Smoking Status: Current every day smoker Exposure to second hand smoke: No Drug Use: none - Social Determinants of Health Will the patient participate in the screening: Declined to provide - Nursing Vital Signs Nursing Vital Signs: Initial Vital Signs Temperature 97.7 F 05/22/25 11:43 Pulse Rate 57 L 05/22/25 11:43 Respiratory Rate 24 05/22/25 11:43 Blood Pressure 149/78 05/22/25 11:43 O2 Sat by Pulse Oximetry 98 05/22/25 11:43 Pain Scale Pain Intensity 0 - Physical Exam General Appearance: no apparent distress, alert Eye Exam: bilateral eye: PERRL, EOMI Ear Exam: right ear: swelling, TM perforation, other (large bony cyst like structure visible in external ear canal, right ), left ear: canal normal, TM normal, bilateral ear: auricle normal Nasal Exam: normal inspection Throat Exam: pharynx normal, moist mucus membranes, No tonsillar exudate Neck Exam: supple Cardiovascular/Respiratory Exam: normal breath sounds, regular rate/rhythm Abdominal Exam: non-tender, soft Neurologic Exam: alert, oriented x 3, sensation nml, No motor deficits Skin Exam: normal color, warm, dry SpO2 Interpretation: normal SpO2: 98 O2 Delivery: Room Air - Course Nursing assessment & vital signs reviewed: Yes - CT Exams Maxillofacial Bones CT Interpretation: Tele-radiologist Report Ordered Tests: Active Orders 24 hr Category Date Time Status EKG-ER Only STAT Care 05/22/25 12:15 Active IAC W/O CONTRAST [CT] Stat Exams 05/22/25 12:18 Completed CBC W DIFF Stat Lab 05/22/25 12:33 Completed CMP Stat Lab 05/22/25 12:33 Completed Medication Summary Discontinued Medications Generic Name Dose Route Start Last Admin Trade Name Freq PRN Reason Stop Dose Admin Ceftriaxone Sodium 1,000 mg 05/22/25 13:27 05/22/25 14:08 Ceftriaxone Sodium 1000 Mg Inj Vial IM 05/22/25 13:28 1,000 mg STAT ONE Administration Ceftriaxone Sodium Confirm 05/22/25 14:02 Ceftriaxone Sodium 1000 Mg Inj Vial Administered 05/22/25 14:03 Dose 1,000 mg .ROUTE .STK-MED ONE Sodium Chloride 1,000 mls @ 999 mls/hr 05/22/25 12:15 05/22/25 13:18 Sodium Chloride 0.9% 1000 Ml IV 05/22/25 13:15 Not Given .Q1H1M STA Ondansetron HCl 4 mg 05/22/25 12:15 05/22/25 13:18 Ondansetron Hcl 4 Mg/2 Ml Vial IV 05/22/25 12:16 Not Given STAT ONE Ondansetron HCl 4 mg 05/22/25 13:13 05/22/25 13:16 Zofran 4 Mg/Udtablet Orally Disintegrating PO 05/22/25 13:14 4 mg STAT ONE Administration Ondansetron HCl Confirm 05/22/25 13:15 Zofran 4 Mg/Udtablet Orally Disintegrating Administered 05/22/25 13:16 Dose 4 mg .ROUTE .STK-MED ONE Lab/Rad Data: Laboratory Result Diagrams 05/22/25 12:33 05/22/25 12:33 Laboratory Results 05/22/25 05/22/25 Range/Units 12:33 12:33 WBC 13.1 H (4.23-9.07) x10^3/uL RBC 5.22 (4.63-6.08) x10^6/uL Hgb 16.6 (13.7-17.5) g/dL Hct 49.0 (40.1-51.0) % MCV 93.9 H (79.0-92.2) fL MCH 31.8 (25.7-32.2) pg MCHC 33.9 (32.3-36.5) g/dL RDW 12.2 (11.6-14.4) % Plt Count 200 (163-337) x10^3/uL MPV 11.4 (9.4-12.4) fL Gran % 87.3 H (34.0-67.9) % Immature Gran % (Auto) 0.3 (0.001-0.429) % Nucleat RBC Rel Count 0.0 (0.00-0.2) % Eos # (Auto) 0.04 (0.04-0.54) x10^3/uL Immature Gran # (Auto) 0.04 H (0.001-0.031) x10^3u/L Absolute Lymphs (auto) 0.91 L (1.32-3.57) x10^3/uL Absolute Monos (auto) 0.63 (0.30-0.82) x10^3/uL Absolute Nucleated RBC 0.00 (0.00-0.012) x10^3u/L Lymphocytes % 6.9 L (21.8-53.1) % Monocytes % 4.8 L (5.3-12.2) % Eosinophils % 0.3 L (0.8-7.0) % Basophils % 0.4 (0.2-1.2) % Absolute Granulocytes 11.43 H (1.78-5.38) x10^3/uL Basophils # 0.05 (0.01-0.08) x10^3/uL Sodium 138 (135-145) mmol/L Potassium 3.7 (3.5-5.1) mmol/L Chloride 105 (98-107) mmol/L Carbon Dioxide 26 (22-30) mmol/L Anion Gap 11.5 (5-15) MEQ/L BUN 6 L (9-20) mg/dL Creatinine 0.73 (0.66-1.25) mg/dL Estimated GFR 118.7 ML/MIN Glucose 110 H (74-106) mg/dL Calcium 9.3 (8.4-10.2) mg/dL Total Bilirubin 0.80 (0.2-1.3) mg/dL AST 29 (17-59) U/L ALT 15 (0-50) U/L Alkaline Phosphatase 59 (38-126) U/L Serum Total Protein 7.4 (6.3-8.2) g/dL Albumin 4.6 (3.5-5.0) g/dL CT/IAC W/O CONTRAST CLINICAL HISTORY: right side ear mass COMPARISON: No prior available. TECHNIQUE: CT temporal bone and inner ear without contrast was performed, and the images were reconstructed in sagittal and coronal images. One of the following dose reduction techniques was utilized for this exam: Automated exposure control, adjustment of the mA and/or kV according to patient size, and use of iterative reconstruction. FINDINGS: Internal Auditory Canals: Both internal auditory canals are normal in size and morphology. No evidence of masses or lesions. Cochlea and Vestibular Apparatus: Normal appearance of the cochlea and vestibular apparatus bilaterally. No evidence of labyrinthitis ossificans or other abnormalities. Facial Nerve Canal: The facial nerve canal is normal in appearance bilaterally. No evidence of narrowing or masses. Petrous Bones: Normal appearance of the petrous portions of the temporal bones. No fractures or destructive lesions. Middle and Inner Ear Structures: Normal appearance of the middle and inner ear structures. No evidence of cholesteatoma or other masses. Normal mastoid air cells with no evidence of mastoiditis. Brainstem and Cerebellopontine Angle: Normal appearance of the brainstem and cerebellopontine angle. No masses or other abnormalities. Vascular Structures: Normal appearance of the visualized vascular structures. No evidence of vascular malformations or aneurysms. Additional findings: Bilateral minimal mucosal thickening of the sphenoid air cells is noted. IMPRESSION: 1. Normal CT of the internal auditory canals without contrast. 2. No evidence of masses, lesions, or other significant abnormalities. - Progress Progress: unchanged Counseled pt/family regarding: lab results, diagnosis, need for follow-up, rad results Medical Desision Making - Independent Historian Additional History obtained from: Spouse, Family - Diagnostic Testing Diagnostic test were ordered, analyzed, and reviewed by me: Yes Radiological Interpretation: Teleradiologist Report - Risk of complications The pt has a mod risk of morbidity or mortality based on: Need for minor surgical intervention in patient with know risk factors - Departure Departure Disposition: Home Clinical Impression: Chronic vertigo, Chronic mucoid otitis media, right ear, Smoking addiction Condition: Stable Critical Care Time: No Referrals: EDWIN BOBBY NP [Primary Care Provider, [facility]] - Follow up/PCP as directed Instructions: Vertigo (a type of dizziness), Vertigo - ED discharge instructions, Quitting smoking for adults, Quitting smoking - ED discharge instructions Additional Instructions: Discharge/Care Plan JAMI PURI was seen on 05/22/25 in the Emergency Room. The patient was counseled regarding Diagnosis,Lab results, Imaging studies, need for follow up and when to return to the Emergency Room. Prescriptions given: Discharge Note I have spoken with the patient and/or caregivers. I have explained the patient's condition, diagnosis and treatment plan based on the information available to me at this time. I have answered the patient's and/or caregiver's questions and addressed any concerns. The patient and/or caregivers have as good understanding of the patient's diagnosis, condition and treatment plan as can be expected at this point. The vital signs have been stable. The patient's condition is stable and appropriate for discharge from the emergency department. The patient will pursue further outpatient evaluation with the primary care physician or other designated or consulting physician as outlined in the discharge instructions. The patient and/or caregivers are agreeable to this plan of care and follow-up instructions have been explained in detail. The patient and/or caregivers have received these instruction. The patient/and or caregivers are aware that any significant change in condition or worsening of symptoms should prompt an immediate return to this or the closest emergency department or call 911. JAMI PURI was seen on 05/22/25 n the Emergency Room. At that time you were treated for an emergent condition, during your visit Laboratory, Radiology and/or other procedures may have been ordered. It is very important that you follow-up with your Primary Care Physician EDWIN BOBBY within the next 24-48 hours to review your Emergency Room visit and the final results of testing that was ordered. Some test results such as Urine Cultures, Blood Cultures, and other cultures if ordered will not be finalized for 24-48 hours. If you do not have a Primary Care Provider please call the medical records department at [phone] ext [phone] to obtain a copy of your results or you may sign into our patient portal to obtain these results by visiting us @ [email or web address] and completing the following steps: 1. Click on the Patient Portal link 2. Click the Patient Self Enrollment Link to complete the enrollment form and entering your 3. Once the enrollment form is completed you will receive an email with a temporary ID and password at the email address you provided. 4. Next choose a user name and password. Your user name must be at least 4 characters long and your password must be at least 4 characters long. 5. Choose a security question from the list and provide your answer to the question. If you already have signed into the Health Portal you may access your Health Care Information 19/05 by the following steps: 1. Login to our website @ [email or web address] 2. Enter your original user name and password. FAQS The [facility] Health Portal is an online tool that contains your Lab Results, Radiology Reports, Visit History, Discharge Instructions and Health Summary Lab and Radiology Results will not be available for 72 hours on the portal. The Portal is a secure site, passwords are encryted and URLs are re-written so they cannot be copied and pasted. You and authorized family members are the only ones who can access your Portal. Also there is a timeout feature that protects your information if you leave the Portal page open. If you have technical difficulty please use the Contact Us link on the page this will allow you to submit any questions you have regarding the Portal or you may contact the Medical Record Department at [phone] ext [phone]. Prescriptions: acetaZOLAMIDE [Acetazolamide 250 mg Tablet] 250 mg PO DAILY #30 tablet Amoxicillin 500 mg PO TID #30 tablet Varenicline Tartrate 0.5 mg PO BID #60 tablet
[2025-05-22] MEDS ORDERED: ZOFRAN ODT 4 MG ONE (13:15)
[2025-05-22] MEDS: ZOFRAN ODT 4 MG PO ONE (13:16)
[2025-05-22] MEDS: Zofran 4 MG/2 ML VIAL IV ONE (13:18)
[2025-05-22 13:25] LABS: Calcium 9.3 mg/dL (8.4-10.2); Carbon Dioxide 26.0 mmol/L (22-30); Creatinine 1 0.73 mg/dL (0.66-1.25); EST GLOMERULAR FILTRATION RATE 118.7 ML/MIN; Glucose 110.0 mg/dL (74-106); Potassium 3.7 mmol/L (3.5-5.1); SGOT/AST 29.0 U/L (17-59); SGPT/ALT 15.0 U/L (0-50); Total Protein 7.4 g/dL (6.3-8.2)
[2025-05-22] MEDS ORDERED: Rocephin 1000 MG INJ ONE (14:02)
[2025-05-22] MEDS: Rocephin 1000 MG INJ IM ONE (14:08)
[2025-05-22 14:11] VITALS: BP 103/69; RESP 15
--- NOTE | 2025-05-22 14:11 | XRAY ---
CLINICAL HISTORY: right side ear mass COMPARISON: No prior available. TECHNIQUE: CT temporal bone and inner ear without contrast was performed, and the images were reconstructed in sagittal and coronal images. One of the following dose reduction techniques was utilized for this exam: Automated exposure control, adjustment of the mA and/or kV according to patient size, and use of iterative reconstruction. FINDINGS: Internal Auditory Canals: Both internal auditory canals are normal in size and morphology. No evidence of masses or lesions. Cochlea and Vestibular Apparatus: Normal appearance of the cochlea and vestibular apparatus bilaterally. No evidence of labyrinthitis ossificans or other abnormalities. Facial Nerve Canal: The facial nerve canal is normal in appearance bilaterally. No evidence of narrowing or masses. Petrous Bones: Normal appearance of the petrous portions of the temporal bones. No fractures or destructive lesions. Middle and Inner Ear Structures: Normal appearance of the middle and inner ear structures. No evidence of cholesteatoma or other masses. Normal mastoid air cells with no evidence of mastoiditis. Brainstem and Cerebellopontine Angle: Normal appearance of the brainstem and cerebellopontine angle. No masses or other abnormalities. Vascular Structures: Normal appearance of the visualized vascular structures. No evidence of vascular malformations or aneurysms. Additional findings: Bilateral minimal mucosal thickening of the sphenoid air cells is noted. IMPRESSION: 1. Normal CT of the internal auditory canals without contrast. 2. No evidence of masses, lesions, or other significant abnormalities. Electronically Signed by: Luis Daniel Lamb MD. (05/22/2025 14:08:37 EDT)
[2025-05-22 14:12] VITALS: PULSE 54
[2025-05-22 14:15] VITALS: O2SAT 98
== END 2025-05-22 14:47 | disposition home or self-care (01) ==
LOC: ED 11:42
DX: R42 Dizziness and giddiness (principal); H65.31 Chronic mucoid otitis media, right ear; F17.200 Nicotine dependence, unspecified, uncomplicated; Z79.891 Long term (current) use of opiate analgesic; Z79.899 Other long term (current) drug therapy